=== PATIENT | male | born 1940 | race Caucasian/White ===

== ENCOUNTER 2019-06-08 19:52 | Inpatient (IN) | payer MEDICARE ==
[~2019-06-08] VITALS: Ht 190.5 cm; Wt 86.6 kg
[2019-06-08] MEDS ORDERED: ELAVIL75 MG PO (19:58)
[2019-06-08] MEDS ORDERED: ASPIRIN325 MG PO (19:58)
[2019-06-08] MEDS ORDERED: PLAVIX75 MG PO (19:59)
[2019-06-08] MEDS ORDERED: FENOFIBRATE160 MG PO (19:59)
[2019-06-08] MEDS ORDERED: LISINOPRIL2.5 MG PO (19:59)
[2019-06-08] MEDS ORDERED: HYDROCODON-ACE1 EA10 PO (19:59)
[2019-06-08] MEDS ORDERED: COREG6.25 MG PO (19:59)
[2019-06-08] MEDS ORDERED: PRAVACHOL40 MG PO (20:00)
[2019-06-08] MEDS ORDERED: POTASSIUM CHLOR8 ME1 PO (20:00)
[2019-06-08] MEDS ORDERED: OMEGA-3100 MG PO (20:00)
[2019-06-08 20:23] LABS: BASOPHILS 0.1 % (0-2); EOSINOPHILS 0.4 % (0-7); HEMATOCRIT 40.7 % (42.0-54.0); HEMOGLOBIN 13.6 g/dL (13.5-17.5); IMMATURE GRANULOCYTES 0.5 % (0-5); LYMPHOCYTES 19.1 % (15-50); MCH 30.8 pg (26.0-34.0); MCHC 33.4 g/dL (31.0-37.0); MCV 92.1 fL (80.0-100.0); MEAN PLATELET VOLUME 9.8 fL (7.4-10.4); MONOCYTES 5.8 % (2-11); NEUTROPHILS 74.1 % (40-80); PLATELET COUNT 299 10x3/uL (130-400); RBC 4.42 10x6/uL (4.20-6.10); RDW 14.1 % (11.5-14.5); WBC 9.8 10x3/uL (4.8-10.8)
[2019-06-08 20:32] LABS: INR 1.1 (0.85-1.17); PROTIME 13.7 SECONDS (11.6-15.0)
[2019-06-08 20:36] LABS: CALC OSMOLALITY 280 mosm/kg (275-300); CALCIUM 9.5 mg/dL (8.5-10.1); CARBON DIOXIDE 27.3 mmol/L (21.0-32.0); CHLORIDE - SERUM 104 mmol/L (98-107); CREATININE - SERUM 1.1 mg/dL (0.6-1.3); POTASSIUM - SERUM 3.6 mmol/L (3.5-5.1); SODIUM 142 mmol/L (136-145); UREA NITROGEN 15 mg/dL (7-18); eGFR NON AFRICAN AMERICAN 68 mL/min (90-120)
[2019-06-08 20:38] LABS: GLUCOSE 47 mg/dL (74-106)
--- NOTE | 2019-06-08 20:45 | NUR ---
D10 INFUSION RATE INCREASED TO 100ML/HR
--- NOTE | 2019-06-08 20:46 | NUR ---
FSBS 52
[2019-06-08 20:51] LABS: ALBUMIN 3.6 g/dL (3.4-5.0); ALKALINE PHOSPHATASE 100 U/L (46-116); ALT (SGPT) 19 U/L (10-68); BILIRUBIN - TOTAL 0.24 mg/dL (0.2-1.3); LIPASE 250 U/L (73-393); MAGNESIUM - SERUM 2.4 mg/dL (1.8-2.4); PRO BNP 529 pg/mL (0-450); PROTEIN - SERUM 7.1 g/dL (6.4-8.2); THYROID STIMULATING HORMONE 2.17 uIU/mL (0.36-3.74)
[2019-06-08 20:52] LABS: TROPONIN-I < 0.017 ng/mL (0.000-0.060)
--- NOTE | 2019-06-08 21:21 | NUR ---
PT C/O PAIN TO BACK, EDP NOTIFIED. PT REPORTS PAIN IS CHRONIC.
--- NOTE | 2019-06-08 21:43 | NUR ---
FSBS 49, EDP YOUSIF NOTIFIED. VERBAL ORDER TO INCREASE D10 TO 150ML
[2019-06-08 22:50] VITALS: BP 132/73
[2019-06-08 23:00] VITALS: BP 125/73; BP 132/73; BMI 23.3
--- NOTE | 2019-06-08 23:00 | NUR ---
REC'D PATIENT FROM ER. CONFUSED, TRYING TO GET UP. LEFT AC, CONT TO BEND ARM. FROM ER, D10 AT 150 ML/HR. NEW ORDERS REC'D TO TITRATE D10 DOWN, CHECK ACCUCHECK EVERY HOUR, AND OKAY TO MAKE DNR. PATIENT STATED THAT HE DID NOT WANT ANYTHING DONE IF HIS HEART STOPPED. DENIES ANY SI. ADMISSION ASSESSMENTS COMPLETE. BED ALARM ON. ALSO GIVEN ORANGE JUICE AND CRANBERRY JUICE.
[2019-06-08 23:15] VITALS: BP 116/96
[2019-06-08 23:30] VITALS: BP 98/71
[2019-06-09] VITALS (24 sets, daily range): BP systolic 98–132; BP diastolic 54–80
--- NOTE | 2019-06-09 01:00 | NUR ---
EYES CLOSED, EASILY WAKES. DENIES ANY NEEDS. STOPPED TRYING TO GET UP.
--- NOTE | 2019-06-09 03:00 | NUR ---
RE-ASSESSMENT COMPLETED. DENIES ANY NEEDS. EYES CLOSED, EASILY WAKES. CONT TO MONITOR ACCUCHECKS HOURLY.
--- NOTE | 2019-06-09 05:00 | NUR ---
PATIENT ATTEMPTING TO GET UP, PULLING LINES WHILE TRYING TO GET UP. HELPED URINATE IN URINAL. UA SENT TO LAB VIA CLEAN CATCH. DENIES ANY OTHER NEEDS. BED ALARM ON
[2019-06-09 06:18] LABS: APPEARANCE CLEAR (CLEAR); BILIRUBIN NEGATIVE (NEGATIVE); COLOR YELLOW (YELLOW); GLUCOSE NEGATIVE (NEGATIVE); KETONE NEGATIVE (NEGATIVE); NITRITE NEGATIVE (NEGATIVE); PROTEIN NEGATIVE (NEGATIVE); SPECIFIC GRAVITY 1.015 (1.005-1.020); UROBILINOGEN NORMAL (NORMAL)
--- NOTE | 2019-06-09 07:55 | NUR ---
REPORT RECEIVED FROM KIRTI SALMERON. PT IS RESTING AT THE END OF THE BED. ASKED PT TO SCOOT UP. DID SOME. HAS ARM BOARD TO LEFT ARM TO KEEP IV IN LEFT AC STRAIGHT AND PATENT. D10 AT 50ML/HR. PT IS AN HOURLY BLOOD SUGAR CHECK. PT IS CONFUSED. VSS. WILL CONTINUE TO MONITOR.
--- NOTE | 2019-06-09 08:22 | NUR ---
PT BLOOD SUGAR 50. GOT PT TO EAT MOST OF HIS BREAKFAST INCLUDING ORANGE JUICE. PT VOIDED 325ML. BED ALARM TURNED ON WHEN LEFT THE ROOM. WILL CONTINUE TO MONITOR.
--- NOTE | 2019-06-09 09:08 | NUR ---
BLOOD SUGAR RECHECKED. 86. VSS. WILL CONTINUE TO MONITOR.
--- NOTE | 2019-06-09 11:08 | NUR ---
PT RESTING QUIETLY. VSS. WILL CONTINUE TO MONITOR.
--- NOTE | 2019-06-09 13:04 | NUR ---
PT UP IN ROOM CONFUSED. FOOD TRAY IN FLOOR. ASSISTED PT BACK TO BED. BED ALARM TURNED ON. WILL CONTINUE TO MONITOR.
--- NOTE | 2019-06-09 15:38 | NUR ---
PT TRANSFERRED TO MS. BLOOD SUGAR 94 PRIOR TO PT LEAVING.
--- NOTE | 2019-06-09 17:15 | NUR ---
BLOOD SUGAR 100. PT AWAKE AND EATING DINNER. VSS. WILL CONTINUE TO MONITOR.
--- NOTE | 2019-06-09 19:15 | NUR ---
REPORT RECEIVED. PT RESTING IN BED, DISORIENTED TO PLACE, TIME, AND SITUATION. REORIENTED NEEDED. PT ON ROOM AIR, VITALS STABLE. ASSESSMENT COMPLETED, SEE FLOWSHEET. LT FOREARM PIV INFUSING, SEE IV FLOWSHEET. NO ACUTE DISTRESS NOTED AT THIS TIME.
--- NOTE | 2019-06-09 21:00 | NUR ---
PT ATTEMPTING TO CLIMB OUT OF BED, REORIENTED MULTIPLE TIMES, PT STILL DISORIENTED TO TIME, PLACE, SITUATION. VITALS STABLE, WILL CONTINUE TO MONITOR.
--- NOTE | 2019-06-09 23:00 | NUR ---
PT DISORIENTED TO TIME AND SITUATION, REORIENTED NEEDED. NO ACUTE DISTRESS NOTED.
[2019-06-10] VITALS (15 sets, daily range): BP systolic 93–135; BP diastolic 43–82; Ht 190.5 cm; Wt 86.6 kg
--- NOTE | 2019-06-10 01:00 | NUR ---
PT RESTING IN BED, DISORIENTED TO TIME AND SITUATION. WILL CONTINUE TO MONITOR.
--- NOTE | 2019-06-10 03:00 | NUR ---
PT RESTING IN BED, DISORIENTED TO TIME AND SITUATION. NO ACUTE DISTRESS NOTED.
[2019-06-10 04:01] LABS: BASOPHILS 0.1 % (0-2); EOSINOPHILS 1.9 % (0-7); HEMATOCRIT 37.7 % (42.0-54.0); HEMOGLOBIN 12.4 g/dL (13.5-17.5); IMMATURE GRANULOCYTES 0.4 % (0-5); LYMPHOCYTES 35.6 % (15-50); MCH 30.3 pg (26.0-34.0); MCHC 32.9 g/dL (31.0-37.0); MCV 92.2 fL (80.0-100.0); MEAN PLATELET VOLUME 9.8 fL (7.4-10.4); MONOCYTES 7.7 % (2-11); NEUTROPHILS 54.3 % (40-80); PLATELET COUNT 271 10x3/uL (130-400); RBC 4.09 10x6/uL (4.20-6.10); RDW 14.4 % (11.5-14.5); WBC 8.5 10x3/uL (4.8-10.8)
[2019-06-10 04:34] LABS: CALCIUM 8.7 mg/dL (8.5-10.1); CARBON DIOXIDE 27.8 mmol/L (21.0-32.0); CHLORIDE - SERUM 109 mmol/L (98-107); CREATININE - SERUM 0.9 mg/dL (0.6-1.3); POTASSIUM - SERUM 3.7 mmol/L (3.5-5.1); SODIUM 143 mmol/L (136-145); eGFR NON AFRICAN AMERICAN 86 mL/min (90-120)
[2019-06-10 04:35] LABS: CALC OSMOLALITY 282 mosm/kg (275-300); GLUCOSE 97 mg/dL (74-106); UREA NITROGEN 8 mg/dL (7-18)
--- NOTE | 2019-06-10 05:00 | NUR ---
PT RESTING IN BED, ATTEMPTS TO GET OUT OF BED BY SELF. DISORIENTED TO TIME AND SITUATION. VITALS STABLE, WILL CONTINUE TO MONITOR.
--- NOTE | 2019-06-10 07:00 | NUR ---
PT RESTING IN BED. AROUSES EASILY. SHIFT ASSESSMENT COMPLETED. NO VISIBLE SIGNS OF DISTRESS NOTED AT THIS TIME. BLOOD SUGAR CHECKED AND WITHIN NORMAL LIMITS. WILL CONTINUE TO MONITOR
--- NOTE | 2019-06-10 09:00 | NUR ---
PT UP TO BEDSIDE COMMODE. TOLERATED WELL. NO VISIBLE SIGNS OF DISTRESS NOTED. WILL CONTINUE TO MONITOR
--- NOTE | 2019-06-10 09:26 | NUR ---
OLMAN FROM [facility] CALLED REGARDING PT ADMISSION DATE AND DIAGNOSIS. VERIFIED WITH CHARGE NURSE JAMEY BEFORE GIVING OUT INFORMATION. PROVIDED OLMAN WITH ADMISSION DATE AND DIAGNOSIS.
--- NOTE | 2019-06-10 11:00 | NUR ---
PT RESTING IN BED. TRIED TO URINATE IN A URINAL HOWEVER UNSUCCESSFUL. REASSESSMENT COMPLETED. WILL CONTINUE TO MONITOR
--- NOTE | 2019-06-10 11:50 | NUR ---
DR CORDOVA ON FLOOR ROUNDING ON PATIENTS. IN ROOM UPDATE GIVEN. STATED TO MONITOR BLOOD SUGAR AND IF STABLE POSSIBLE DISCHARGE OR TRANSFER
[2019-06-10 12:07] LABS: UDS - AMPHET NEGATIVE QUAL (NEGATIVE); UDS - BARB NEGATIVE QUAL (NEGATIVE); UDS - BENZO NEGATIVE QUAL (NEGATIVE); UDS - COCAINE NEGATIVE QUAL (NEGATIVE); UDS - OPIATE NEGATIVE QUAL (NEGATIVE); UDS - PCP NEGATIVE QUAL (NEGATIVE); UDS - THC NEGATIVE QUAL (NEGATIVE)
--- NOTE | 2019-06-10 13:00 | NUR ---
PT SITTING UP AT BEDSIDE. NO VISIBLE SIGNS OF DISTRESS NOTED. WILL CONTINUE TO MONITOR
--- NOTE | 2019-06-10 13:49 | CN ---
PATIENT NAME:ABIOLA ESTES MEDICAL RECORD: [id number] : 38 LOCATION:[facility].2308 ADMIT DATE: 06/09/19 ACCOUNT: [id number] CONSULTING PHYSICIAN: NORM CAMPOS MD REFERRING PHYSICIAN: KEV GARCIA MD DATE OF CONSULTATION: 06/09/2019 PSYCHIATRIC CONSULTATION IDENTIFYING DATA: The patient is 78 years old and he is admitted to the hospital on a voluntary basis. CHIEF COMPLAINT: Confusion. HISTORY OF PRESENT ILLNESS: The patient was brought to the Emergency Room secondary to mental status changes. He was found to have a blood sugar of only 40 and was admitted. He has a medical history significant for stroke, hypertension and pacemaker placement. He also is a diabetic and has chronic back pain. He is confused, agitated, and disorganized. He is trying to get out of bed and then forgets why he is trying to get out of bed. He wants to go home, but then tells me he is at home. He is essentially uninterviewable and is experiencing a fair amount of distress with a low degree of specific information about what is distressing to him. Clearly, he is quite confused. ASSESSMENT: 1. Delirium secondary to multiple factors. 2. 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 PLAN: At this time, the patient should be treated supportively, both medically and behaviorally. I am going to give him a scheduled dose of Geodon along with a p.r.n. dose of Geodon and p.r.n. Ativan to assist with his agitation. From home, I noticed that one of his home medicines is 150 mg of Elavil daily that is not appropriate in an elderly person and maybe a contributing factor to his delirium. In addition to that, he is taking a scheduled dose of hydrocodone. He says he has chronic back pain. That is inappropriate in my view as well and would be a contributing factor to his delirium. TRANSINT:[id number] Voice Confirmation ID: [id number] DOCUMENT ID: [id number] NORM CAMPOS MD at 1349 CC: [id number] DICTATION DATE: 06/09/19 1224 LICENSED JOURNEYMAN ELECTRICIAN: 06/09/19 1310 ADM IN [id number] [place] [address]
--- NOTE | 2019-06-10 15:47 | NUR ---
DR CORDOVA PAGED. SHE RETURNED CALL. GIVEN AN UPDATE ON BLOOD SUGAR. DR CORDOVA STATED THAT PT IS GOOD TO BE DISCHARGED. SHE IS GOING TO PUT ORDERS IN.
--- NOTE | 2019-06-10 16:20 | NUR ---
FOLLOW UP APPT CALLED. EDUCATED CRUZTENT ON SMOKIGN CESSATION AND S/S OF HYPOGLYCEMIA.
--- NOTE | 2019-06-10 16:37 | NUR ---
DC'D IV. DISCONNECTED FROM MONITORS. AWAITING RIDE. WHEELCHAIR AT BEDSIDE
--- NOTE | 2019-06-10 17:15 | NUR ---
DISCHARGED PT OUT OF UNIT. TAKEN TO PERSONAL VEHICLE DRIVEN BY ROOMATE. ESCORTED OUT BY WHEELCHAIR.
--- NOTE | 2019-06-11 15:10 | PN ---
PATIENT:ABIOLA ESTES MEDICAL RECORD: [id number] LOCATION:D.ICU D.230 ADMISSION DATE: 06/09/19 PROGRESS NOTE DATE OF SERVICE: 06/10/2019 SUBJECTIVE: The patient's case was discussed with staff. He has no new complaint. OBJECTIVE: The patient is significantly calmer. He still only partially oriented. He has not been aggressive. ASSESSMENT: 1. Delirium. 2. Vascular dementia. PLAN: P.r.n. medications to treat agitation should be maintained. I think the use of the Geodon on a scheduled basis at bedtime should only be for the period of this hospitalization and perhaps the first few days after he returns to the residential. After that I would discontinue it. TRANSINT:[id number] Voice Confirmation ID: [id number] DOCUMENT ID: [id number] NORM CAMPOS MD at 1510 CC: [id number] DICTATION DATE: 06/10/19 1515 ADVERTISING VICE PRESIDENT: 06/10/19 2237 DIS IN 06/10/19 [id number] [place] [address]
== END 2019-06-10 17:46 | disposition home or self-care (01) | DRG 71 ==
LOC: EDBD 19:52 → D.ER 19:52 → D.M2 20:16 → OBSVTIME 20:16 → D.ICU 22:01
PROVIDERS: Family Medicine; ADMIT Internal Medicine Nephrology; ATTEND Internal Medicine Nephrology
DX: G93.41 Metabolic encephalopathy (principal); F17.203 Nicotine dependence unspecified, with withdrawal; E11.649 Type 2 diabetes mellitus with hypoglycemia without coma; I10 Essential (primary) hypertension; E78.5 Hyperlipidemia, unspecified; F32.9 Major depressive disorder, single episode, unspecified; G89.29 Other chronic pain; R41.0 Disorientation, unspecified

== ENCOUNTER 2019-06-29 10:20 | Inpatient (IN) | payer MEDICARE ==
[~2019-06-29] VITALS: Ht 182.9 cm; Wt 84.5 kg
[~2019-06-29 10:20] MED LIST: ASPIRIN325 MG PO; COREG6.25 MG PO; ELAVIL75 MG PO; FENOFIBRATE160 MG PO; HYDROCODON-ACE1 EA10 PO; LISINOPRIL2.5 MG PO; OMEGA-3100 MG PO; PLAVIX75 MG PO; POTASSIUM CHLOR8 ME1 PO; PRAVACHOL40 MG PO
[2019-06-29 10:40] LABS: BASOPHILS 0.2 % (0-2); HEMOGLOBIN 14.1 g/dL (13.5-17.5); IMMATURE GRANULOCYTES 0.2 % (0-5); LYMPHOCYTES 32.3 % (15-50); MCH 30.7 pg (26.0-34.0); MCHC 33.6 g/dL (31.0-37.0); MCV 91.5 fL (80.0-100.0); MEAN PLATELET VOLUME 9.9 fL (7.4-10.4); MONOCYTES 6.6 % (2-11); NEUTROPHILS 57.7 % (40-80); PLATELET COUNT 275 10x3/uL (130-400); RBC 4.59 10x6/uL (4.20-6.10); RDW 14.2 % (11.5-14.5); WBC 8.1 10x3/uL (4.8-10.8)
[2019-06-29 10:48] LABS: INR 0.96 (0.85-1.17); PROTIME 12.7 SECONDS (11.6-15.0)
[2019-06-29 10:49] LABS: APTT 34.3 SECONDS (22.8-39.4)
[2019-06-29 10:54] LABS: CALC OSMOLALITY 283 mosm/kg (275-300); CALCIUM 8.8 mg/dL (8.5-10.1); CHLORIDE - SERUM 107 mmol/L (98-107); GLUCOSE 92 mg/dL (74-106); POTASSIUM - SERUM 3.8 mmol/L (3.5-5.1); SODIUM 143 mmol/L (136-145); UREA NITROGEN 11 mg/dL (7-18); eGFR NON AFRICAN AMERICAN 76 mL/min (90-120)
[2019-06-29 11:10] LABS: ALBUMIN 3.4 g/dL (3.4-5.0); ALKALINE PHOSPHATASE 98 U/L (46-116); ALT (SGPT) 18 U/L (10-68); BILIRUBIN - TOTAL 0.34 mg/dL (0.2-1.3); CKMB 1.7 U/L (0.0-3.6); CREATINE KINASE 66 UL (21-232); MAGNESIUM - SERUM 2.2 mg/dL (1.8-2.4); PROTEIN - SERUM 7.3 g/dL (6.4-8.2); THYROID STIMULATING HORMONE 2.88 uIU/mL (0.36-3.74)
[2019-06-29 11:14] LABS: TROPONIN-I < 0.017 ng/mL (0.000-0.060)
[2019-06-29 13:14] LABS: APPEARANCE CLEAR (CLEAR); BILIRUBIN NEGATIVE (NEGATIVE); COLOR STRAW (YELLOW); GLUCOSE NEGATIVE (NEGATIVE); KETONE NEGATIVE (NEGATIVE); NITRITE NEGATIVE (NEGATIVE); PROTEIN NEGATIVE (NEGATIVE); SPECIFIC GRAVITY 1.005 (1.005-1.020); UROBILINOGEN NORMAL (NORMAL)
[2019-06-29 13:28] LABS: UDS - AMPHET NEGATIVE QUAL (NEGATIVE); UDS - BARB NEGATIVE QUAL (NEGATIVE); UDS - BENZO NEGATIVE QUAL (NEGATIVE); UDS - COCAINE NEGATIVE QUAL (NEGATIVE); UDS - OPIATE NEGATIVE QUAL (NEGATIVE); UDS - PCP NEGATIVE QUAL (NEGATIVE); UDS - THC NEGATIVE QUAL (NEGATIVE)
[2019-06-29 13:49] VITALS: BP 139/78
--- NOTE | 2019-06-29 16:19 | NUR ---
ARRIVES TO UNIT PER STRETCHER, ALERT, TANGIRNAQ, SL TO LAC, WILL CHECK ORDERS AND CONT TO MONITOR FOR SYMPTOMS OF CVA
[2019-06-29 16:21] VITALS: BP 139/76
--- NOTE | 2019-06-29 17:07 | NUR ---
UNABLE TO REACH VALERIA OR SON RYNE TO ASK QUESTIONS ABOUT PT HX AND HOME MEDS
--- NOTE | 2019-06-29 19:00 | NUR ---
BEDSIDE REPORT RECEIVED AND CARE OF PT ASSUMED. PT LYING IN HIGH SIMPSON'S POSITION WITH EYES CLOSED. IV TO LEFT AC SALINE LOCKED. BED ALARM I PLACE.
[2019-06-29] MEDS ORDERED: FUROSEMIDE40 MG PO (19:16)
--- NOTE | 2019-06-29 19:39 | NUR ---
pt looking for hearing aids and shoes and glasses, glasses on pt face, unable to reach family to ask about hearing aids, none in ears upon arrival to unit
[2019-06-29 20:00] VITALS: BP 167/89
--- NOTE | 2019-06-29 20:47 | NUR ---
HS MEDICATIONS GIVEN. FSBS 92 THIS CHECK REQUIRING NO COVERAGE PER SLIDING SCALE.
[2019-06-30] VITALS: BP 143/78
[2019-06-30 04:00] VITALS: BP 153/89
--- NOTE | 2019-06-30 04:05 | NUR ---
PT WAKING UP AND MORE ALERT. ASKING WHERE HIS HEARING AIDS ARE....HE DID NOT HAVE HEARING AIDS WHEN HE ARRIVED ON THIS FLOOR ACCORDING TO THE DAY SHIFT NURSE, KIRTI SCHUMACHER. CALLED ER AND TALKED TO MIRTHA AND ADMISSIONS....THEY ARE GOING TO SEARCH DOWN THERE AND CHECK IN RADIOLOGY, PT HAD A CT SCAN AND WOULD NOT HAVE BEEN ABLE TO KEEP HEARING AIDS IN FOR THAT PROCEDURE.
[2019-06-30 06:49] LABS: BASOPHILS 0.4 % (0-2); EOSINOPHILS 3.7 % (0-7); HEMATOCRIT 43.3 % (42.0-54.0); IMMATURE GRANULOCYTES 0.3 % (0-5); LYMPHOCYTES 37.7 % (15-50); MCH 30.3 pg (26.0-34.0); MCHC 32.3 g/dL (31.0-37.0); MONOCYTES 5.8 % (2-11); NEUTROPHILS 52.1 % (40-80); PLATELET COUNT 233 10x3/uL (130-400); RBC 4.62 10x6/uL (4.20-6.10); RDW 14.2 % (11.5-14.5); WBC 7.9 10x3/uL (4.8-10.8)
[2019-06-30 06:50] LABS: MCV 93.7 fL (80.0-100.0)
[2019-06-30 07:08] LABS: ALBUMIN 3.4 g/dL (3.4-5.0); ALKALINE PHOSPHATASE 100 U/L (46-116); ALT (SGPT) 16 U/L (10-68); BILIRUBIN - TOTAL 0.43 mg/dL (0.2-1.3); CALC OSMOLALITY 279 mosm/kg (275-300); CALCIUM 8.8 mg/dL (8.5-10.1); CARBON DIOXIDE 26.8 mmol/L (21.0-32.0); CHLORIDE - SERUM 106 mmol/L (98-107); CREATININE - SERUM 0.9 mg/dL (0.6-1.3); GLUCOSE 83 mg/dL (74-106); POTASSIUM - SERUM 3.6 mmol/L (3.5-5.1); PROTEIN - SERUM 7.2 g/dL (6.4-8.2); SODIUM 142 mmol/L (136-145); eGFR NON AFRICAN AMERICAN 86 mL/min (90-120)
[2019-06-30 07:09] LABS: UREA NITROGEN 8 mg/dL (7-18)
[2019-06-30 07:45] LABS: INR 1.01 (0.85-1.17); PROTIME 13.3 SECONDS (11.6-15.0)
--- NOTE | 2019-06-30 08:45 | NUR ---
RESTING IN BED, EYES CLOSED, NO DISTRESS NOTED, SL IN PLACE, CONT TO MONITOR SUGARS
[2019-06-30 08:53] VITALS: BP 143/90
[2019-06-30 09:07] LABS: CHOL - HDL RATIO 5.3 ratio (2.3-4.9); LDL-HDL RATIO 2.9 ratio (1.5-3.5)
--- NOTE | 2019-06-30 12:26 | NUR ---
PT OVERPOWERED NURSE AND WALKED OUT OF ROOM WITH OVERBED TABLE, CONFUSED, THINKS HE IS HOME AND I AM NOT TELLING HIM THE TRUTH, RETURNED SAFELY TO BED
[2019-06-30 12:56] VITALS: BP 146/82
[2019-06-30 17:02] VITALS: BP 156/87
--- NOTE | 2019-06-30 19:00 | NUR ---
BEDSIDE REPORT RECEIVED AND CARE OF PT ASSUMED. PT SITTING UP ON SIDE OF BED...CONFUSED AND DISORIENTED. DAY SHIFT REPORTS HE HAS BEED HARD TO KEEP IN HIS ROOM AND HE IS VERY UNSTABLE ON HIS FEET. IV TO LEFT AC SALINE LOCKED. BED ALARM IN PLACE FOR SAFETY.
--- NOTE | 2019-06-30 19:26 | NUR ---
Dana SHAW HERE TO VISIT WITH PT, STATES THAT HE DIDNT BRING HIS HEARING AIDS OR SHOES TO THE HOSPITAL THIS VISIT
--- NOTE | 2019-06-30 19:40 | NUR ---
ABBE AYON, CEFERINO TO REQUEST MED TO CALM PT DOWN. PT WILL NOT STAY IN BED AND KEEPS TRYING TO LEAVE ROOM PUSHING HIS BEDSIDE TABLE FOR SUPPORT...VERY UNSTABLE ON HIS FEET. BECOMING COMBATIVE WHEN TRYING TO RE-ORIENT HIM TO SITUATION...HE THINKS HE IS HOME AND WE ARE INTRUDERS. RECEIVED ORDER FOR GEODON 20 MG BID PRN AND INSTRUCTED TO GIVE FIRST DOSE AT BEDTIME MED PASS.
--- NOTE | 2019-06-30 21:40 | NUR ---
HS MEDICATIONS GIVEN TO INCLUDE GEODON 20 MG PO. FSBS 84 THIS CHECK REQUIRING NO COVERAGE PER SLIDING SCALE. GAVE PT JUICE FOR HS SNACK.
--- NOTE | 2019-06-30 22:11 | NUR ---
PT REFUSES TO KEEP TELEMETRY ON...RETURNED TO INSPECTOR HOT FORGINGS.
--- NOTE | 2019-06-30 22:30 | NUR ---
ASSISTED PT UP TO VOID USING WALKER. NOT CONFUSED BEFORE PRN MED. CHANGED ALL BEDDING. POSITIONED IN BED FOR COMFORT AND COVERED WITH WARM BLANKET. WILL MONITOR CLOSELY. BED ALARM IN USE.
[2019-07-01 04:00] VITALS: BP 122/62
--- NOTE | 2019-07-01 04:30 | NUR ---
PT WEAKER AND VERY GROGGY....TRYING TO STAND TO GO TO VOID. CHECKED FSBS - 59 AT THIS TIME. GAVE 25 ML D50 PER HYPO GLYCEMIC PROTOCAL. WILL RE-CHECK FSBS.
[2019-07-01 07:58] VITALS: BP 136/71
[2019-07-01 10:28] LABS: BASOPHILS 0.3 % (0-2); EOSINOPHILS 2.2 % (0-7); HEMATOCRIT 41.1 % (42.0-54.0); HEMOGLOBIN 13.6 g/dL (13.5-17.5); IMMATURE GRANULOCYTES 0.2 % (0-5); LYMPHOCYTES 31.3 % (15-50); MCH 30.5 pg (26.0-34.0); MCHC 33.1 g/dL (31.0-37.0); MCV 92.2 fL (80.0-100.0); MONOCYTES 8.7 % (2-11); NEUTROPHILS 57.3 % (40-80); PLATELET COUNT 219 10x3/uL (130-400); RBC 4.46 10x6/uL (4.20-6.10); RDW 13.8 % (11.5-14.5)
[2019-07-01 10:30] LABS: WBC 5.8 10x3/uL (4.8-10.8)
[2019-07-01 10:39] LABS: ALBUMIN 3.2 g/dL (3.4-5.0); ALKALINE PHOSPHATASE 93 U/L (46-116); ALT (SGPT) 16 U/L (10-68); BILIRUBIN - TOTAL 0.47 mg/dL (0.2-1.3); CALC OSMOLALITY 282 mosm/kg (275-300); CALCIUM 8.4 mg/dL (8.5-10.1); CARBON DIOXIDE 28.4 mmol/L (21.0-32.0); CHLORIDE - SERUM 108 mmol/L (98-107); CREATININE - SERUM 0.8 mg/dL (0.6-1.3); GLUCOSE 88 mg/dL (74-106); POTASSIUM - SERUM 3.4 mmol/L (3.5-5.1); PROTEIN - SERUM 6.8 g/dL (6.4-8.2); SODIUM 143 mmol/L (136-145); UREA NITROGEN 9 mg/dL (7-18); eGFR NON AFRICAN AMERICAN > 90 mL/min (90-120)
[2019-07-01 11:39] VITALS: BP 137/71
--- NOTE | 2019-07-01 12:47 | NUR ---
OT NOTE: UNABLE TO AROUSE.. WILL ATTEMPT AGAIN LATER. FIOR HANSEN, OTR/L
[2019-07-01 13:37] VITALS: Ht 182.9 cm; Wt 84.5 kg
--- NOTE | 2019-07-01 15:07 | NUR ---
PT LYING IN BED MUMBLING. CONFUSED, PT NOT STURDY UNABLE TO GET UP WITHOUT ASSISTANCE AND UNABLE TO ASSIST US IN GETTING PT UP. PT WAS ABLE TO TAKE MEDS THIS MORNING BUT NOW UNABLE TO SWALLOW OR EAT WITHOUT CHOKING, REPLACED PT K+ WITH RIDERS. CONTINUE WITH PLAN OF CARE
--- NOTE | 2019-07-01 18:23 | NUR ---
ASSISTED PARTS ROOM ASSOCIATE WITH FULL LINEN CHANGE AND BED BATH, PT IV RESITED TO LEFT WRIST, PT IS STILL SNORING, NOT AWAKE FOR MEALS REALLY HAD TO SIT PT UP AND WAKE HIM TO EAT. PT DID NOT DO WELL WITH ST SO FOOD IS NOW PUREED. CL IN REACH CONTINUE WITH PLAN OF CARE
--- NOTE | 2019-07-01 19:00 | NUR ---
BEDSIDE REPORT RECEIVED AND CARE OF PT ASSUMED. PT LYING IN MID SIMPSON'S POSITION WITH EYES CLOSED AND UNLABORED BREATHING. IV TO LEFT WRIST PATENT WITH D5 1/2 NS INFUISNG AT 50 ML/HR. PT FAILED SWALLOW EVAL TODAY AND IS NOW ON THICKENED LIQUIDS AND PUREED DIET. WILL MONITOR CLOSELY FOR NEEDS.
--- NOTE | 2019-07-01 20:26 | NUR ---
HS MEDICATIONS GIVEN WITH SIPS OF THICKENED WATER. WILL CONTINUE TO MONITOR FOR NEEDS.
[2019-07-01 21:11] VITALS: BP 130/77
[2019-07-02] VITALS (9 sets, daily range): BP systolic 91–138; BP diastolic 66–88
--- NOTE | 2019-07-02 02:26 | NUR ---
PT SLEEPING IN MID SIMPSON'S POSITION....HAS BEED LETHARGIC ALL SHIFT. VITALS STABLE AND UNLABORED BREATHING. BED ALARM IN USE FOR SAFETY.
[2019-07-02 05:57] LABS: BASOPHILS 0.3 % (0-2); EOSINOPHILS 2.7 % (0-7); HEMATOCRIT 42.1 % (42.0-54.0); IMMATURE GRANULOCYTES 0.1 % (0-5); LYMPHOCYTES 25.2 % (15-50); MCH 30.6 pg (26.0-34.0); MCHC 33.3 g/dL (31.0-37.0); MCV 91.9 fL (80.0-100.0); MEAN PLATELET VOLUME 10.5 fL (7.4-10.4); MONOCYTES 9.7 % (2-11); PLATELET COUNT 245 10x3/uL (130-400); RBC 4.58 10x6/uL (4.20-6.10); RDW 14.1 % (11.5-14.5)
[2019-07-02 06:06] LABS: WBC 7.9 10x3/uL (4.8-10.8)
[2019-07-02 06:12] LABS: ALBUMIN 3.2 g/dL (3.4-5.0); ALKALINE PHOSPHATASE 93 U/L (46-116); ALT (SGPT) 16 U/L (10-68); BILIRUBIN - TOTAL 0.56 mg/dL (0.2-1.3); CALC OSMOLALITY 280 mosm/kg (275-300); CALCIUM 8.4 mg/dL (8.5-10.1); CARBON DIOXIDE 29.6 mmol/L (21.0-32.0); CHLORIDE - SERUM 106 mmol/L (98-107); CREATININE - SERUM 0.9 mg/dL (0.6-1.3); GLUCOSE 83 mg/dL (74-106); POTASSIUM - SERUM 3.9 mmol/L (3.5-5.1); PROTEIN - SERUM 6.4 g/dL (6.4-8.2); SODIUM 142 mmol/L (136-145); UREA NITROGEN 9 mg/dL (7-18); eGFR NON AFRICAN AMERICAN 86 mL/min (90-120)
--- NOTE | 2019-07-02 08:24 | NUR ---
ASSISTED PATIENT WITH USE OF URINAL. FALL PRECAUTIONS IN PLACE. CL IN REACH. WCTM
--- NOTE | 2019-07-02 11:04 | NUR ---
PATIENT SITTING IN CHAIR. CHAIR ALARM ON. RIGHT EAR HAS A HEARING AID IN. THE OTHER IS CHARGING. CL IN REACH. [facility]
--- NOTE | 2019-07-02 15:53 | NUR ---
1545 REPORT RECIEVED AND CARE ASSUMED OF PT FROM FLOOR.. PT ARRIVED IN CHAIR HE IS CONVERSANT AND IS NOT COMBATIVE AT THIS TIME.. PT LEFT IN CHAIR AT BEDSIDE AND COVERED WITH A WARM BLANKET TV ON .. IV SITE SALINE LOCKED AT THIS TIME.. PT IS NOT WILLING AT THIS TIME TO ALLOW US TO PUT HEART MONITOR OR BP CUFF ON HIM.. DR LONDON IS IN THE UNIT AND ORDERS ARE RECIEVED..
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
--- NOTE | 2019-07-02 18:36 | NUR ---
1800 PT REMAINS COMBATIVE NOT ALLOWING HEART MONITIRING OR BP MONITORING..
--- NOTE | 2019-07-02 19:00 | NUR ---
BEDSIDE REPORT AND SHIFT ASSESSMENT COMPLETED, PT CARE ASSUMED. MONITORS ON AND WORKING, SEE FLOW SHEET FOR FURTHER DETAILS. WILL CONTINUE TO OBSERVE.
--- NOTE | 2019-07-02 21:00 | NUR ---
PT LYING IN BED RESTING, PT CONTINUES TO BE CONFUSED AND COMBATIVE. MONITORS ON AND WORKING, VITALS STABLE. WILL CONTINUE TO OBSERVE.
--- NOTE | 2019-07-02 23:00 | NUR ---
PT TURNED AND REPOSITIONED FOR COMFORT. PT CLEANED FROM BLADDER INCONT, COMPLETE LINEN CHANGE COMPLETED AT THIS TIME, SEE FLOW SHEET FOR FURTHER DETAILS. WILL CONTINUE TO OBSERVE.
[2019-07-03] VITALS (12 sets, daily range): BP systolic 100–156; BP diastolic 57–98
--- NOTE | 2019-07-03 01:00 | NUR ---
PT TURNED AND REPOSITIONED FOR COMFORT, MONITORS ON AND WORKING, VITALS STABLE, PT RESTING. WILL CONTINUE TO OBSERVE.
--- NOTE | 2019-07-03 03:00 | NUR ---
NO CHANGES, SEE FLOW SHEET FOR FURTHER DETAILS. WILL CONTINUE TO OBSERVE.
[2019-07-03 04:22] LABS: BASOPHILS 0.1 % (0-2); EOSINOPHILS 2.8 % (0-7); HEMATOCRIT 43.1 % (42.0-54.0); HEMOGLOBIN 14.4 g/dL (13.5-17.5); IMMATURE GRANULOCYTES 0.1 % (0-5); LYMPHOCYTES 33.6 % (15-50); MCH 30.8 pg (26.0-34.0); MCHC 33.4 g/dL (31.0-37.0); MCV 92.3 fL (80.0-100.0); MEAN PLATELET VOLUME 10.2 fL (7.4-10.4); NEUTROPHILS 54.4 % (40-80); PLATELET COUNT 240 10x3/uL (130-400); RBC 4.67 10x6/uL (4.20-6.10); RDW 13.9 % (11.5-14.5); WBC 7.5 10x3/uL (4.8-10.8)
[2019-07-03 04:29] LABS: ALBUMIN 3.3 g/dL (3.4-5.0); ALKALINE PHOSPHATASE 95 U/L (46-116); ALT (SGPT) 16 U/L (10-68); BILIRUBIN - TOTAL 0.52 mg/dL (0.2-1.3); CALCIUM 8.7 mg/dL (8.5-10.1); CARBON DIOXIDE 30.3 mmol/L (21.0-32.0); CHLORIDE - SERUM 105 mmol/L (98-107); SODIUM 143 mmol/L (136-145); UREA NITROGEN 11 mg/dL (7-18); eGFR NON AFRICAN AMERICAN 76 mL/min (90-120)
[2019-07-03 04:30] LABS: CALC OSMOLALITY 281 mosm/kg (275-300); GLUCOSE 60 mg/dL (74-106); POTASSIUM - SERUM 3.3 mmol/L (3.5-5.1)
--- NOTE | 2019-07-03 05:00 | NUR ---
PT LYING IN BED RESTING, MONITORS ON AND WORKING, VITALS STABLE, WILL CONTINUE TO OBSERVE.
--- NOTE | 2019-07-03 08:30 | NUR ---
PT AWAKE. COOPERATIVE. MORNING MEDICATIONS HAVE BEEN PROVIDED. GIVEN 1-2 AT A TIME WITH APPLESAUCE. ABLE TO TOLERATE WITH NO S/S OF ASPIRATION. HAS EATEN A FEW BITES OF EGGS, CREAM OF WHEAT CEREAL. ALMOST COMPLETE BOWL OF APPLE SAUCE EATEN, AND 200ML OF THICKEN WATER CONSUMED.
--- NOTE | 2019-07-03 09:26 | NUR ---
PT SLEEPING AT THIS TIME. NO DISTRESS NOTED. BED LOW. SIDE RAILS X3. CALL LIGHT IN REACH.
--- NOTE | 2019-07-03 10:34 | NUR ---
FRIEND VALERIA CALLED TO CHECK ON PATIENT. PASSWORD WAS GIVEN. PT RESTING AT THIS TIME. SAYS PT HAS A SON HERE IN [place], BUT THEY DO NOT MAINTAIN CONTACT. SON IN [facility] MAKES DECISIONS. RYNE [phone]
--- NOTE | 2019-07-03 11:55 | NUR ---
PT YELLING OUT TO GET OUT OF BED AND TO "NOT BE TIED DOWN" ATTEMPTING TO PULL AT RESTRAINTS. REMOVES COVERS, PULLED BEDPAN FROM UNDER BUTTOCKS AND THREW IN FLOOR. YELLS FOR NURSE TO "TAKE THE NEEDLE OUT OF MY ARM SO I CAN GET UP AND TAKE A SHIT" SAYS "I HAD A STROKE THREE DAYS AGO AND YOU'RE GOING TO MAKE ME HAVE ANOTHER ONE, I'VE GOT SOMETHING IN MY BRAIN THAT CAN EXPLODE ANY MINUTE, AND YOU BETTER LET ME OUT OF HERE"
--- NOTE | 2019-07-03 12:34 | NUR ---
DR CAMPOS BY TO SEE PATIENT. SAYS HE WILL TAKE IN ASSISTED IF PHYSICIAN FEELS MEDICALLY STABLE AND IS AGREEABLE (ALONG WITH FAMILY).
--- NOTE | 2019-07-03 13:27 | NUR ---
Nutrition follow-up: Diet: consistent CHO puree with honey thick liquids 2/2 decrease LOC PO intake today; bowl of cream of wheat, 1 applesauce, a few bites of eggs and 200 ml thicken water per nurse. Wt: 186# Pt will go to [facility] when stable. RDN following.
[2019-07-03] MEDS ORDERED: GEODON20 M1 IM (14:22)
[2019-07-03] MEDS ORDERED: NICODERM C1 PATCH .1 TRANSDERM (14:22)
[2019-07-03] MEDS ORDERED: GEODON20 MG PO (14:22)
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
--- NOTE | 2019-07-03 15:39 | NUR ---
REPORT CALLED TO [facility] IN [facility]. TO TAKE OUT PIV BEFORE TRANSPORT.
--- NOTE | 2019-07-03 16:00 | NUR ---
PIV TO LEFT ARM REMOVED, TIP INTACT. NO BLEEDING.
--- NOTE | 2019-07-03 16:41 | MORECARE ---
CASE MANAGEMENT DISCHARGE SUMMARY PATIENT: ABIOLA ESTES UNIT: [id number] ADM DATE: 06/29/19 AGE: 78 : 39 SEX: M ROOM/BED: D.2312 AUTHOR: FRED PIKE PHYSICIAN: REFERRING PHYSICIAN: KEV GARCIA MD DATE OF SERVICE: 07/03/19 Discharge Plan Patient Name: ABIOLA ESTES Facility: [facility]:[place] : 1940 Planned Disposition: Home Anticipated Discharge Date: Discharge Date: Expected LOS: Initial Reviewer: [email or web address] Initial Review Date: 07/03/2019 Generated: 07/03/19 5:40 pm Patient Name: ABIOLA ESTES Page [id number] at 1641 All edits/amendments must be made on the electronic document DICTATION DATE: 07/03/19 [facility] PIE CHEF: MARVIN 07/03/19 [facility] RPT#: [id number] IN DATE: STATUS: ADM IN [facility] [address] [place] [address] END OF REPORT
--- NOTE | 2019-07-03 16:51 | MORECARE ---
CASE MANAGEMENT DISCHARGE SUMMARY PATIENT: ABIOLA ESTES UNIT: [id number] ADM DATE: 06/29/19 AGE: 78 : 39 SEX: M ROOM/BED: D.2312 AUTHOR: FRED PIKE PHYSICIAN: REFERRING PHYSICIAN: KEV GARCIA MD DATE OF SERVICE: 07/03/19 Discharge Plan Patient Name: ABIOLA ESTES [facility] [facility] 1940 Planned Disposition: Home Anticipated Discharge Date: Discharge Date: Expected LOS: Initial Reviewer: [email or web address] Initial Review Date: 07/03/2019 Generated: 07/03/19 5:51 pm DCPIA - Discharge Planning Initial Assessment Updated by [email or web address]: Kym Gutierrez on 07/03/19 4:42 pm * Is the patient Alert and Oriented? Yes * How many steps to enter\exit or inside your home? * PCP [facility] * [facility] * Preadmission Environment Home with Family * ADLs Independent * Equipment Walker * Other Equipment B/P, GLUCOMETER * List name and contact numbers for known caregivers / representatives who currently or will assist patient after discharge: VALERIA FRENCH - CAREGIVER - [phone] RYNE ESTES SON -[facility]) - [phone] * Verbal permission to speak to the caregivers and representatives has been obtained from the patient. Yes * Community resources currently utilized Home Health * Please name any agencies selected above. [facility] * Additional services required to return to the preadmission environment? No * Can the patient safely return to the preadmission environment? Yes * Has this patient been hospitalized within the prior 30 days at any hospital? Yes Last DP export: 07/03/19 3:41 p Patient Name: ABIOLA ESTES Page [id number] at 1651 All edits/amendments must be made on the electronic document DICTATION DATE: 07/03/191650 FIG WASHER: MARVIN 07/03/191650 RPT#: [id number] DC DATE: STATUS: ADM IN [facility] [address] [place] [address] END OF REPORT
--- NOTE | 2019-07-03 16:59 | MORECARE ---
CASE MANAGEMENT DISCHARGE SUMMARY PATIENT: ABIOLA ESTES UNIT: [id number] ADM DATE: 06/29/19 AGE: 78 : 39 SEX: M ROOM/BED: D.2312 AUTHOR: SHAHZAD,DOC PHYSICIAN: REFERRING PHYSICIAN: KEV GARCIA MD DATE OF SERVICE: 07/03/19 Discharge Plan Patient Name: ABIOLA ESTES Facility: [facility]:[place] : 1940 Planned Disposition: Home Anticipated Discharge Date: Discharge Date: Expected LOS: Initial Reviewer: [email or web address] Initial Review Date: 07/03/2019 Generated: 07/03/19 5:59 pm Comments DCP- Discharge Planning Updated by [email or web address]: Kym Gutierrez on 07/03/19 3:[address] Patient Name: ABIOLA ESTES Admission Status: ER Accout number: [id number] Admission Date: 06-29-2019 : 1940 Admission Diagnosis: Attending: KEV GARCIA Current LOS: 4 Anticipated DC Date: Planned Disposition: Home Primary Insurance: [employer] CHOICE PPO MCR ADVANT Discharge Planning Comments: CM called and spoke with patient's caregiver/ roommate Basilia French [phone] after explaining CM role and obtaining verbal consent. Patient lives at home with Basilia where he is independent with his care and plans to return there upon discharge. Basilia states that he has good and bad days regarding his confusion. Basilia states that patient is being seen by [facility] for PT & OT. CM discussed availability / needs of home health and medical equipment. Patient denies any discharge needs at this time. CM discussed with Basilia that psychiatric MD is recommended [facility] placement. Basilia agreed that would be helpful and that the patient had stated that he needed help. Basilia will have patient's son call CM since he is POA. Basilia will drive patient home upon discharge. CM will continue to follow and assist as needed with discharge planning / needs. Ryne Estes son called CM and agreed that it was alright for patient to go to [facility]. CM discussed with son code status. Ryne stated that he wanted patient to be a DNR. CM confirmed verbally that Ryne was patient's POA. CM had Mary Montiel RN to witness the request for DNR. Ryne denied having any other questions regarding patient. Hostess Cashier: Kym Gutierrez DCPIA - Discharge Planning Initial Assessment Updated by [id number]: Kym Gutierrez on 07/03/19 4:42 pm * Is the patient Alert and Oriented? Yes * How many steps to enter\exit or inside your home? * PCP [facility] * [facility] * Preadmission Environment Home with Family * ADLs Independent * Equipment Walker * Other Equipment B/P, GLUCOMETER * List name and contact numbers for known caregivers / representatives who currently or will assist patient after discharge: BASILIA FRENCH - CAREGIVER - [phone] RYNE ESTES - SON -(poa) - [phone] * Verbal permission to speak to the caregivers and representatives has been obtained from the patient. Yes * Community resources currently utilized Home Health * Please name any agencies selected above. [facility] * Additional services required to return to the preadmission environment? No * Can the patient safely return to the preadmission environment? Yes * Has this patient been hospitalized within the prior 30 days at any hospital? Yes Last DP export: 07/03/19 3:51 p Patient Name: ABIOLA ESTES Page [id number] at 1659 All edits/amendments must be made on the electronic document DICTATION DATE: 07/03/191658 SALVAGE INSPECTOR WOOD PARTS: MARVIN 07/03/191658 RPT#: [id number] DC DATE: STATUS: ADM IN [facility] [address] [place] [address] END OF REPORT
--- NOTE | 2019-07-03 17:25 | MORECARE ---
CASE MANAGEMENT DISCHARGE SUMMARY PATIENT: ABIOLA ESTES UNIT: [id number] ADM DATE: 06/29/19 AGE: 78 : 39 SEX: M ROOM/BED: D.2312 AUTHOR: SHAHZAD,DOC PHYSICIAN: REFERRING PHYSICIAN: KEV GARCIA MD DATE OF SERVICE: 07/03/19 Discharge Plan Patient Name: ABIOLA ESTES Facility: [facility]:[place] : 1940 Planned Disposition: Home Anticipated Discharge Date: Discharge Date: 07/03/2019 Expected LOS: Initial Reviewer: [email or web address] Initial Review Date: 07/03/2019 Generated: 07/03/19 6:24 pm Comments DCP- Discharge Planning Updated by [email or web address]: Kym Gutierrez on 07/03/19 3:[address] Patient Name: ABIOLA ESTES Admission Status: ER Accout number: [id number] Admission Date: 06-29-2019 : 1940 Admission Diagnosis: Attending: KEV GARCIA Current LOS: 4 Anticipated DC Date: Planned Disposition: Home Primary Insurance: [employer] CHOICE PPO MCR ADVANT Discharge Planning Comments: CM called and spoke with patient's caregiver/ roommate Basilia French [phone] after explaining CM role and obtaining verbal consent. Patient lives at home with Basilia where he is independent with his care and plans to return there upon discharge. Basilia states that he has good and bad days regarding his confusion. Basilia states that patient is being seen by [facility] for PT & OT. CM discussed availability / needs of home health and medical equipment. Patient denies any discharge needs at this time. CM discussed with Basilia that psychiatric MD is recommended [facility] placement. Basilia agreed that would be helpful and that the patient had stated that he needed help. Basilia will have patient's son call CM since he is POA. Basilia will drive patient home upon discharge. CM will continue to follow and assist as needed with discharge planning / needs. Ryne Estes son called CM and agreed that it was alright for patient to go to [facility]. CM discussed with son code status. Ryne stated that he wanted patient to be a DNR. CM confirmed verbally that Ryne was patient's POA. CM had Mary Montiel RN to witness the request for DNR. Ryne denied having any other questions regarding patient. Prospecting Observer: Kym Gutierrez DCPIA - Discharge Planning Initial Assessment Updated by [id number]: Kym Gutierrez on 07/03/19 4:42 pm * Is the patient Alert and Oriented? Yes * How many steps to enter\exit or inside your home? * PCP [facility] * [facility] * Preadmission Environment Home with Family * ADLs Independent * Equipment Walker * Other Equipment B/P, GLUCOMETER * List name and contact numbers for known caregivers / representatives who currently or will assist patient after discharge: BASILIA FRENCH - CAREGIVER - [phone] RYNE ESTES - SON -(poa) - [phone] * Verbal permission to speak to the caregivers and representatives has been obtained from the patient. Yes * Community resources currently utilized Home Health * Please name any agencies selected above. [facility] * Additional services required to return to the preadmission environment? No * Can the patient safely return to the preadmission environment? Yes * Has this patient been hospitalized within the prior 30 days at any hospital? Yes Last DP export: 07/03/19 3:59 p Patient Name: ABIOLA ESTES Page 46320 at 1725 All edits/amendments must be made on the electronic document DICTATION DATE: 07/03/191723 FORESTRY FARM LABORER: MARVIN 07/03/191723 RPT#: [id number] DC DATE:07/03/19 STATUS: DIS IN [facility] [address] [place] [address] END OF REPORT
== END 2019-07-03 17:03 | disposition short-term general hospital (02) | DRG 64 ==
LOC: D.ER 10:20 → D.MS 14:34 → D.ICU 14:34
PROVIDERS: Family Medicine; ADMIT Internal Medicine Nephrology; ATTEND Internal Medicine Nephrology
DX: I63.9 Cerebral infarction, unspecified (principal); G93.41 Metabolic encephalopathy; F01.51 Vascular dementia, unspecified severity, with behavioral disturbance; R53.1 Weakness; E78.5 Hyperlipidemia, unspecified; E11.65 Type 2 diabetes mellitus with hyperglycemia; H91.93 Unspecified hearing loss, bilateral; G89.29 Other chronic pain; Z95.0 Presence of cardiac pacemaker; F01.50 Vascular dementia, unspecified severity, without behavioral disturbance, psychotic disturbance, mood disturbance, and anxiety; E11.649 Type 2 diabetes mellitus with hypoglycemia without coma; R29.810 Facial weakness

== ENCOUNTER 2019-07-03 16:56 | Inpatient (IN) | payer MEDICARE ==
--- NOTE | ~2019-07-03 | PN ---
PATIENT:ABIOLA ESTES MEDICAL RECORD: [id number] LOCATION:[facility] ADMISSION DATE: 07/03/19 PROGRESS NOTE DATE OF SERVICE: 07/28/2019 SUBJECTIVE: Mr. Estes is a 78-year-old male with history of arrhythmias, pacemaker secondary to AFib, diabetes, and a history of strokes. The patient has ranged from quiet incoherent to today where he is awake, bright affect, he is alert and oriented times 1, initiating conversation asking for cigarettes. His latest blood sugar was 57. He is eating 20%, 100%, and 60%. His last BM was on 07/22/2019. Sleep time was 8.5. ASSESSMENT: Unchanged. PLAN: Lack of bowel movement may be secondary to poor appetite, poor intake in the last week, multiple laxatives in place, but if not as input increases if there is no bowel output, we will ask Dr. Mcknight to intervene. Otherwise, working with family, son, who apparently is a DPOA in [place], work with case management to get necessary papers for group home placement. Case discussed with nursing, chart reviewed and the patient interviewed. TRANSINT:[id number] Voice Confirmation ID: [id number] DOCUMENT ID: [id number] DEMARIO ALMONTE MD CC: [id number] DICTATION DATE: 07/28/191421 TECHNICAL MARKETING ENGINEER: 07/29/19 0257 ADM IN [place] [id number] [place] [id number]
[2019-07-03 17:07] VITALS: BP 117/71
--- NOTE | 2019-07-03 18:01 | NUR ---
PT WAS ADMITTED FROM ICU FOR CONFUSION, AGGRESSION, AND SEXUALLY INAPPROPRIATE WITH STAFF. PT IS RESTLESS AND DOES ATTEMPT TO GRAB AT STAFF. PT IS REDIRECTED BUT SHOWS NO SIGNS OF RETAINING OR UNDERSTANDING. PT IS A DNR PER HOSPITAL RECORDS. VERBAL CONSENT FROM SON RYNE ESTES AT [phone]. GLASSES AND HEARING AIDES IN HIS ROOM. FALL PRECAUTIONS IN PLACE.
--- NOTE | 2019-07-04 02:19 | NUR ---
B.) PT IS ALERT AND ORIENTED TO SELF AND AT TIMES SITUATION. HE IS RECEIVED IN HIS ROOM IN THE BED EATING DINNER. HE IS PLEASANT WITH STAFF BUT CONSTANTLY TRYING TO GET UP WITHOUT ASSIST. HE REMAINS VERY CONFUSED. I.) PROVIDED PM MEDICATIONS. REDIRECT OFTEN. R.) COMPLIANT WITH ALL MEDICATIONS. DIFFICULT TO REDIRECT AT TIMES. P.) WILL CONTINUE TO MONITOR.
[2019-07-04 05:39] VITALS: BP 117/71
[2019-07-04 08:30] VITALS: BP 94/55
--- NOTE | 2019-07-04 11:30 | NUR ---
PATIENT REFUSED FSBS X 3 ATTEMPTS.
[2019-07-04 13:06] VITALS: Wt 77.7 kg
--- NOTE | 2019-07-04 16:06 | NUR ---
PATIENT ALERT, AGITATED, BELLIGERANT AND CONFUSED. MEDS MIXED WITH PUDDING AND ADMIN PER ORDERS. PT. COMBATIVE AT TIMES. CONT POC DIRECTED.
--- NOTE | 2019-07-04 18:36 | NUR ---
PT IS VERY RESTLESS. THINKING HIS SON IS AT THE DOOR AND ANOTHER PT IS PREVENTING HIM FROM SEEING HIS SON. NURSE ATTEMPTED TO EXPLAIN AND REDIRECT. UNABLE TO REDIRECT PT AT THIS TIME. WILL ATTEMPT TO REDIRECT AGAIN IF NEEDED.
--- NOTE | 2019-07-04 20:57 | NUR ---
B.) PT IS ALERT AND ORIENTED TO SELF ONLY. HE IS RECEIVED IN THE DAYROOM IN A KETTY-CHAIR. HE REMAINS CONFUSED AND DELUSIONAL. HE IS VERY UNSTEADY ON HIS FEET. I.) PROVIDED PM MEDICATIONS. REDIRECT OFTEN. R.) COMPLIANT WITH ALL MEDICATIONS. DIFFICULT TO REDIRECT AT TIMES. P.) WILL CONTINUE TO MONITOR.
[2019-07-05 09:05] VITALS: BP 130/57
--- NOTE | 2019-07-05 14:37 | PSY ---
PATIENT NAME:ABIOLA ESTES MEDICAL RECORD: [id number] : 38 LOCATION:[facility] ADMISSION DATE: 07/03/19 ACCOUNT: [id number] PSYCHIATRIC EVALUATION DATE OF EVALUATION: 07/04/19 IDENTIFYING DATA: The patient is 78 years old and he is admitted to the hospital on a voluntary basis. CHIEF COMPLAINT: Aggression. HISTORY OF PRESENT ILLNESS: The patient had initially been admitted to the intensive care unit for aggressive and disruptive behaviors. He continued to have those behaviors and was subsequently transferred to the behavioral unit for treatment. The patient himself is only oriented to person and although verbal. He is not providing anything in the way of useful information. PAST MEDICAL HISTORY: Significant for stroke along with diabetes, cardiac arrhythmia with pacemaker placement and a defibrillator. He has chronic back pain and a right facial droop secondary to what I presume is a previous stroke. He apparently had another stroke recently and that was associated with the recent admission to the intensive care unit. PAST PSYCHIATRIC HISTORY: Significant for depression. FAMILY HISTORY: Unknown. ALLERGIES: No known drug allergies. CURRENT MEDICATIONS: Include Elavil, aspirin, Coreg, Plavix, hydrocodone, potassium, Pravachol, and Lasix. SOCIAL HISTORY: The patient is a former cigarette smoker. He is also a former abuser of alcohol, but has no history of recreational drug use. He is unable to tell me about his occupational functioning. He is and does have a son who is involved with his care. MENTAL STATUS EXAMINATION: The patient is awake, alert, and oriented to person only. His mood is anxious. His affect is constricted. Thought processes are disorganized. Memory, concentration, and abstraction abilities are impaired and he denies that he would seek to harm himself or others. He denies psychotic symptoms, but I do not believe he understood the question. ASSESSMENT: AXIS I: Vascular dementia. AXIS II: Status post stroke, hypertension, diabetes, cardiac arrhythmia. AXIS IV: Moderate. AXIS V: Global assessment of functioning is 30. PLAN: At this time, the patient is admitted to the hospital secondary to aggressive, sexually inappropriate and disruptive behaviors associated with a dementing illness. He will be comprehensively evaluated and treated with both mood stabilizing and memory enhancing medications. His long-term prognosis is guarded. TRANSINT:[id number] Voice Confirmation ID: [id number] DOCUMENT ID: [id number] NORM CAMPOS MD at 1437 CC: [id number] DICTATION DATE: 07/04/19 1521 SHUTTLE FINAL INSPECTOR: 07/04/19 1538 ADM IN [place] [id number] [place] [id number]
[2019-07-05 20:21] VITALS: BP 114/72
--- NOTE | 2019-07-05 20:32 | NUR ---
PATIENT IS CONFUSED, UNABLE TO LEARN AT THIS POINT, NEEDS STAFF FOR ALL CARE, COMPLIANT WITH MEDS. WILL FOLLOW POC
--- NOTE | 2019-07-06 07:38 | NUR ---
The patient is awake sitting in the w/c in the hallway. He is [place], he is wearing his amplifiers to hear in bilateral ears. He is still sleepy at this time. He is not showing any aggression this am or any inappropriate behavior. Provide prescribed meds. Redirect to appropriate behaviors. The patient is calm at this time. His affect is flat to blunted. Continue POC.
--- NOTE | 2019-07-06 10:57 | PN ---
PATIENT:ABIOLA ESTES MEDICAL RECORD: [id number] LOCATION:[facility] ADMISSION DATE: 07/03/19 PROGRESS NOTE DATE OF SERVICE: 07/05/2019 SUBJECTIVE: The patient's case was discussed with staff. He has no new complaint. OBJECTIVE: The patient is in good behavioral control today. He has not been disruptive into any significant degree. He is much calmer than he was yesterday. ASSESSMENT: Vascular dementia. PLAN: I am going to reduce the patient's Klonopin. I am going to continue other medications. I will monitor him for clinical changes. TRANSINT:[id number] Voice Confirmation ID: [id number] DOCUMENT ID: [id number] NORM CAMPOS MD at 1057 CC: [id number] DICTATION DATE: 07/05/19 1536 VOCATIONAL TECHNICAL EDUCATION DIRECTOR: 07/05/19 1723 ADM IN [place] [id number] [place] [id number]
--- NOTE | 2019-07-06 11:53 | NUR ---
FSBS 58, ATTEMPTED TO GIVE HIM ORANGE JUICE WITH SUGAR, HE REFUSES AND SAYS "PLAIN WATER."
[2019-07-06 20:40] VITALS: BP 104/67
--- NOTE | 2019-07-06 21:07 | NUR ---
PATIENT IS VERY CONFUSED, SPEAKS WITH A VERY LOW VOICE, NO AGGRESSION NOTED. COMPLIANT WITH MEDS. WILL FOLLOW POC
--- NOTE | 2019-07-07 08:51 | NUR ---
hearing aids charged and placed into pts ear.
[2019-07-07 08:55] VITALS: BP 128/90
--- NOTE | 2019-07-07 09:17 | PN ---
PATIENT:ABIOLA ESTES MEDICAL RECORD: [id number] LOCATION:[facility] ADMISSION DATE: 07/03/19 PROGRESS NOTE DATE OF SERVICE: 07/06/2019 SUBJECTIVE: The patient's case was discussed with staff. He has no new complaint. OBJECTIVE: The patient's dementia is very advanced. He is easily agitated, but currently is calm. He is only oriented to person. ASSESSMENT: Vascular dementia. PLAN: The patient will be maintained on current medicines, which I have reviewed. His long-term prognosis is guarded. I am going to change his Ultram to scheduled in the event that perhaps some of his agitation is related to discomfort that he cannot adequately verbalize. TRANSINT:[id number] Voice Confirmation ID: [id number] DOCUMENT ID: [id number] NORM CAMPOS MD at 0917 CC: [id number] DICTATION DATE: 07/06/19 1135 PICC NURSE: 07/06/19 1201 ADM IN [facility] [address] [place] [address]
--- NOTE | 2019-07-07 12:35 | NUR ---
REC'D PT IN HALLWAY IN RECLINING CHAIR. BLOOD SUGAR 55. THIS NURSE ENCOURAGED PT TO EAT AND DRINK. PT. UNABLE TO DO SO AT THIS TIME. NEW ORDER FOR GLUCOSE GEL. GLUCOSE GEL GIVEN PER ORDER. BLOOD SUGAR RECHECKED RESULT OF 62. NEW ORDER NOTED FOR DEXTROSE SQ PRN. PT ENCOURAGED TO EAT PER STAFF. PT FINALLY ATE SOME PUDDING PER STAFF. BLOOD SUGAR RECHECKED WITH RESULT OF 75. WILL CONTINUE TO MONITOR BLOOD SUGAR FOR HYPOGLYCEMIA. NO BEHAVIOR SNOTED AT THIS TIME. CALM AND COOPERATIVE WITH ASSESSMENT. MED COMPLIANT. REDIRECT AND REORIENT NEEDED. WILL CPOC.
[2019-07-07 19:37] VITALS: BP 107/66
--- NOTE | 2019-07-07 20:31 | NUR ---
RECEIVED IN DAYROOM. SITTING IN A CHAIR WITH PEERS AT HIS SIDE. CALM AND COOPERATIVE WITH CARE AND ASSESSMENT. NO SIGNS OF AGGRESSION OR SEXUALLY INAPPROPRIATTE BEHAVIOR. REDIRECT AND REORIENT NEEDED. CONTINUES TO SIT CALMLY IN DAYROOM. CONTINUE PLAN OF CARE
--- NOTE | 2019-07-08 09:07 | NUR ---
Nutrition Follow-up: Nutrition consult for high fiber, complex carb and protein. Noted HYDRAULIC AUTO JACK MECHANIC note on 07/05/19 recommending to pt it remain on puree with honey thick liquids. Diet: Diabetic Puree with honey thicken liquids + Glucerna with meals PO intake: ~19% average x last 9 meals No BM recorded since admit. WT: 186# (07/04/19); Admit WT: 186# (07/03/19) Meds noted: tosha shah. Labs noted: A1C 5.4% (07/06/19), POC Glu 46-72mg/dL. Pt is currently getting Glucerna which is high protein. Will update diet order to whole wheat/whole grain for complex CHO. Encourage menu selections and PO intake of meats, beans, and vegetables. Will continue to monitor PO intake and wt trend. RD available if nutrition support recommendations needed. RD following.
[2019-07-08 10:10] VITALS: BP 109/60
--- NOTE | 2019-07-08 15:28 | PN ---
PATIENT:ABIOLA ESTES MEDICAL RECORD: [id number] LOCATION:[facility] ADMISSION DATE: 07/03/19 PROGRESS NOTE DATE OF SERVICE: 07/07/2019 SUBJECTIVE: The patient's case was discussed with staff. He has no new complaint. OBJECTIVE: The patient denies intent to harm himself or others. He is tolerating his medicines well. Unfortunately, his blood sugar has been significantly labile, this may be related to him not eating adequately. ASSESSMENT: Vascular dementia. PLAN: The patient is going to be maintained on current medicines. His prognosis is guarded. TRANSINT:[id number] Voice Confirmation ID: [id number] DOCUMENT ID: [id number] NORM CAMPOS MD at 1528 CC: [id number] DICTATION DATE: 07/07/19 1015 ELECTRIFIER OPERATOR: 07/07/19 1100 ADM IN [place] [id number] [place] [id number]
--- NOTE | 2019-07-08 16:31 | NUR ---
PT IS AWAKE AND ALERT TO SELF ONLY. CALM AND COOPERATIVE WITH ASSESSMENT. PRESCRIBED MEDS PROVIDED ORDERED. MED COMPLIANT. REDIRECTA ND REORIENT NEEDED. NO BEHAVIORS NOTED AT THIS TIME. FALL PRECAUTIONS IN PLACE. WILL CPOC.
[2019-07-08 19:30] VITALS: BP 127/65
--- NOTE | 2019-07-08 19:53 | NUR ---
RECEIVED IN BEDROOM, ATTEMPTS TO STAND WITHOUT ASSIST FROM BED. ROSENDA ALARM SOUNDING. UNABLE TO REDIRECT. CONTINUES TO STAND WITHOUT ASSIST VERY CONFUSED. INCREASING ANXIETY. CONTINUE TO REDIRECT AND REORIENT. IN BED WITH EYES OPEN AT THIS TIME. CONTINUE PLAN OF CARE
--- NOTE | 2019-07-08 20:15 | NUR ---
PATENT VERY CONFUSED. SEXUALLY INAPPROPRIATE WITH STAFF MEMBER. STANDING UP FROM BED. INCREASING ANXIETY. PRN ATIVAN 0.5 MG IM GIVEN FOR ANXIETY. PRN HALDOL 2 MG IM GIVEN FOR PSYCHOTIC BEHAVIOR. CONTINUE TO MONITOR FOR SAFETY.
--- NOTE | 2019-07-09 07:45 | NUR ---
REC'D PT IN RECLINING CHAIR BY NURSES STATION. CALM AND COOPERATIVE WITH ASSESSMENT. PT CAN BE SEXUALLY INAPPROPRIATE WITH STAFF AT TIMES. PRESCRIBED MEDS PROVIDED ORDERED. MED COMPLIANT. TAKES MEDS CRUSHED IN APPLESAUCE. REDIRECT AND REORIENT NEEDED. FALL PRECAUTIONS IN PLACE. WILL CPOC.
[2019-07-09 09:53] VITALS: BP 112/70
--- NOTE | 2019-07-09 12:23 | PN ---
PATIENT:ABIOLA ESTES MEDICAL RECORD: [id number] LOCATION:[facility] ADMISSION DATE: 07/03/19 PROGRESS NOTE DATE OF SERVICE: 07/08/2019 SUBJECTIVE: The patient's case was discussed with staff. He has no new complaint. OBJECTIVE: The patient is in better behavioral control, although he does appear a little sedated. ASSESSMENT: Vascular dementia. PLAN: I am going to reduce the patient's Geodon slightly along with the Ultram. He will be monitored for clinical changes associated with this reduction. His long-term prognosis is guarded. He continues to have a very brittle fingerstick blood sugars indicating poor control of his diabetes. TRANSINT:[id number] Voice Confirmation ID: [id number] DOCUMENT ID: [id number] NORM CAMPOS MD at 1223 CC: [id number] DICTATION DATE: 07/08/19 1605 WASTEWATER TREATMENT PLANT OPERATOR: 07/08/19 204 ADM IN [facility] [address] [place] [address]
--- NOTE | 2019-07-09 13:56 | NUR ---
BLOOD SUGAR 73
--- NOTE | 2019-07-09 18:05 | NUR ---
THIS NURSE NOTICED PT EYES APPEARED FIXED. COLOR WAS PALE. PT NONRESPONSIVE. THIS NURSE HAD MHT GET V/S AND THIS NURSE STERNAL RUBBED HIS CHEST. PT STILL NONRESPONSIVE. V/S B/P 73/20, P- 77, R, 14. BLOOD SUGAR RESULT OF 99. UNABLE TO GET O2 SAT AT THIS TIME. RAPID RESPONSE CALLED X 3. PT BROUGHT UP FRONT TO ROOM AND PUT IN BED IN [place] POSTION. SEE RAPID REPORT FOR RESULTS. DR. MORALES NOTIFIED. NEW ORDERS FOR CBC, UA, AND CXR ORDERED STAT. UA OBTAINED AND URINE SENT TO LAB. CXR AND LAB COMPLETED. AWAITING ON RESULTS.
--- NOTE | 2019-07-09 18:15 | NUR ---
PT MARIAMA MICHELE NOTIFIED OF RAPID RESPONSE.
[2019-07-09 18:42] LABS: BASOPHILS 0.3 % (0-2); EOSINOPHILS 0.9 % (0-7); HEMATOCRIT 41.8 % (42.0-54.0); HEMOGLOBIN 13.9 g/dL (13.5-17.5); IMMATURE GRANULOCYTES 0.2 % (0-5); LYMPHOCYTES 26.2 % (15-50); MCH 30.5 pg (26.0-34.0); MCHC 33.3 g/dL (31.0-37.0); MCV 91.7 fL (80.0-100.0); MEAN PLATELET VOLUME 11.4 fL (7.4-10.4); MONOCYTES 10.2 % (2-11); NEUTROPHILS 62.2 % (40-80); PLATELET COUNT 259 10x3/uL (130-400); RBC 4.56 10x6/uL (4.20-6.10); RDW 13.7 % (11.5-14.5); WBC 10.2 10x3/uL (4.8-10.8)
[2019-07-09 19:21] LABS: BILIRUBIN NEGATIVE (NEGATIVE); GLUCOSE NEGATIVE (NEGATIVE); KETONE NEGATIVE (NEGATIVE); NITRITE NEGATIVE (NEGATIVE); UROBILINOGEN NORMAL (NORMAL)
--- NOTE | 2019-07-09 19:39 | NUR ---
RECEIVED IN BEDROOM. RESTING IN BED WITH EYES CLOSED. LETHARGIC. IN AND OUT CATH FOR STAT U/A. ROSENDA ALARM ON. RESTING IN BED WITH EYES OPEN AT THIS TIME. NURSE IN ROOM TAKING VITALS. CONTINUE TO MONITOR. CONTINUE PLAN OF CARE
[2019-07-09 20:10] VITALS: BP 105/57
--- NOTE | 2019-07-09 21:00 | NUR ---
PATIENT AWAKE. VERY CONFUSED. THINKS HE IS IN A BOAT. WANT TO TRY AND SAVE US. ATTEMPTS TO STAND WITHOUT ASSIST CONSYANTLY. ROSENDA ALARM SOUNDING. NOT ABLE TO REDIRECT OR REORIENT AT THIS TIME. CONTINUE TO MONITOR FOR SAFETY.
--- NOTE | 2019-07-09 22:20 | NUR ---
PATIENT VERY CONFUSED. DELUSIONAL. INCREASING ANXIETY. PRN ATIVAN 0.5 MG IM GIVEN FOR ANXIETY AND PRN HALDOL 2 MG IM GIVEN FOR PSYCHOTIC BEHAVIORS. CONTINUE TO MONITOR FOR SAFETY.
--- NOTE | 2019-07-09 23:00 | NUR ---
CONTINUES TO BE RESTLESS IN BED.
[2019-07-10 06:16] LABS: ALBUMIN 3.5 g/dL (3.4-5.0); BILIRUBIN - TOTAL 0.58 mg/dL (0.2-1.3); CALCIUM 8.7 mg/dL (8.5-10.1); CARBON DIOXIDE 26.6 mmol/L (21.0-32.0); POTASSIUM - SERUM 3.6 mmol/L (3.5-5.1); PROTEIN - SERUM 7.1 g/dL (6.4-8.2)
[2019-07-10 09:13] VITALS: BP 103/50
--- NOTE | 2019-07-10 10:42 | PN ---
PATIENT:ABIOLA ESTES MEDICAL RECORD: [id number] LOCATION:[facility] ADMISSION DATE: 07/03/19 PROGRESS NOTE DATE OF SERVICE: 07/09/2019 SUBJECTIVE: The patient's case was discussed with staff. He has no new complaint. OBJECTIVE: The patient was agitated last night, required some p.r.n. medication. He has almost no recollection of this and appears sedated today. ASSESSMENT: Vascular dementia. PLAN: The patient will be treated with Seroquel to assist with his behavior problems. His long-term prognosis is guarded. TRANSINT:[id number] Voice Confirmation ID: [id number] DOCUMENT ID: [id number] NORM CAMPOS MD at 1042 CC: [id number] DICTATION DATE: 07/09/19 1243 WEB CONTENT EXECUTIVE: 07/09/19 1748 ADM IN [place] [id number] [place] [address]
--- NOTE | 2019-07-10 11:00 | NUR ---
AWAKE AND ALERT TO SELF ONLY. NO AGGRESSION TODAY. CALM AND COOPERATIVE WITH CARE AND ASSESSMENT. ADMINISTER PRESCRIBED MEDICATIONS. COMPLIANT WITH MEDICATIONS. MONITOR FOR SAFETY AND CONTINUE PLAN OF CARE.
[2019-07-10 23:13] VITALS: BP 110/52
--- NOTE | 2019-07-10 23:52 | NUR ---
PATIENT IS CONFUSED, DOES NOT MAKE NEEDS KNOWN, DEPENDS ON STAFF FOR ALL NEEDS TO BE MET, SLEEPS MOST OF THE TIME. WILL MONITOR
--- NOTE | 2019-07-11 08:19 | NUR ---
PT SITTING IN CHAIR WITH EYES CLOSED. RESP EVEN AND NONLABORED. NO ACUTE DISTRESS NOTED. PT IS CONFUSED ALERT TO SELF ONLY. REDIRECT AND REORIENT NEEDED. PT SLEPT 10.25 HOURS. PT IS COMPLIANT WITH MEDS, VITALS AND ASSESSMENT. PT IS A TOTAL ASSIST. CHAIR ALARM IN PLACE AND ACTIVE. WILL CONT PLAN OF CARE.
[2019-07-11 09:03] VITALS: BP 123/68
--- NOTE | 2019-07-11 10:27 | NUR ---
Nutrition Follow-up: Chart reviewed. Pt was seen by RATE AND COST ANALYST yesterday, RATE AND COST ANALYST notes "overt" coughing with thin liquids and regular solids, RATE AND COST ANALYST also states that RN states that pt with increase PO intake on upgraded diet. Noted that diet order was changed by MD yesterday as well. Diet changed from Diabetic (complex CHO) Mech Soft/Ground Honey thick liquids + Glucerna TID to diet listed below. Diet: Regular Unrefined foods, mech soft, 6 small meals PO intake: ~39% average x last 9 meals Last BM: none recorded since admit, BM noted in MD note for 07/09/19 WT: 156# (07/08/19)- WC weight; Admit WT: 186# (07/03/19)- no wt source/"unable, pt. combative." Suspect inaccuracy of admit wt vs most recent weight? Note Pt had a bedscale weight of 191# (06/09/19). This is a 35# wt loss in <1 month if most recent weight is accurate. Meds noted: tosha shah. Labs noted: POC Glu 75. Recommend adding oral nutrition supplement back to diet order. May add oral nutrition supplements with meals and inbetween to promote 6 small meals/snacks and help meet estimated energy needs. PO diet per MD and RATE AND COST ANALYST. Regular diet is nutritionally appropriate this time. Recommend continue appetite stimulant as medically feasible and continue encouraged PO intake. RD is available for nutrition support recommendations if needed. RD will continue to monitor PO intake and wt trend. RD following.
--- NOTE | 2019-07-11 11:44 | NUR ---
PT FSBS IS 65 MG/DL. PT DID NOT EAT BREAKFAST DUE TO BEING DROWSY. WILL ATTEMPT TO ASSIST PT WITH LUNCH. MEDICATIONS NOT GIVEN DUE TO BEING DROWSY.
--- NOTE | 2019-07-11 14:33 | NUR ---
NURSE ATTEMPTED TO PUT PT HEARING AID INTO HIS LEFT EAR PT PULLED IT OUT OF HIS EAR WHILE MAKING A FACE. NURSE SHAVED PT AND WHEN SHE WIPED HIS FACE HE PULLED BACK ON THE LEFT SIDE. MURSE LOOKED INTO HIS LEFT EAR DID NOT SEE ANY REDNESS NOTED IN CANAL. STAFF ATTEMPTED TO GET PT TO EAT AT LUNCH AND PT REFUSED FOOD, DRINK AND PUDDING. NOT STATING ANYTHING.
--- NOTE | 2019-07-11 17:31 | NUR ---
PT FSBS: 61 MG/DL. STAFF ATTEMPTS TO FEED PT AND HE REFUSES. PUSHED HAND AWAY FROM FOOD. PT REFUSES TO EAT ANYTHING. AWAKE AND AROUSABLE AT THIS TIME. WILL CONT TO ENCOURAGE PT TO EAT.
--- NOTE | 2019-07-11 18:26 | NUR ---
PT REFUSED TO EAT DINNER AND ASKED FOR A CIGARETTE. WHEN TOLD HER COULDNT HAVE THAT HE ASKED FOR WATER. WATER GIVEN AND PT DRANK SOME OF IT. OFFERED ENSURE. PT REFUSED ASKING FOR WATER.
[2019-07-11 19:38] VITALS: BP 110/50
--- NOTE | 2019-07-11 23:56 | NUR ---
B)RECEIVED PATIENT SITTING IN THE DAYROOM. MORE ALERT AND MAKING NEEDS KNOWN. ORIENTED TO SELF ONLY. I)ADMINISTER MEDS AND MONITOR COMPLIANCE. REORIENT NEEDED. R)PATIENT FIRST KNOCKED WATER FROM NURSES HAND RELATING HE WAS NOT GOING TO TAKE HIS MEDICINES UNTIL HE WENT TO THE BATHROOM. NURSE SPOKE TO PATIENT AND HE DID TAKE MEDICINE WITHOUT FURTHER RESISTANCE. POOR REORIENTAION DUE TO IMPAIRED ABILITY TO PROCESS AND RETAIN INFORMATION. P)COMTINUE POC AND PROVIDE SAFE ENVIRONMENT.
--- NOTE | 2019-07-12 07:22 | NUR ---
REC'D PT LAYING IN BED WITH EYES CLOSED. NO ACUTE DISTRESS NOTED. RESP EVEN AND NONLABORED. PREVIOUS SHIFT REPORTED NO BEHAVIORS. PT COMPLIANT WITH MEDS, VITALS AND ASSESSMENTS. PT REQUIRES TOTAL ASSIST. BED ALARM IN PLACE AND ACTIVE. WILL CONT PLAN OF CARE.
--- NOTE | 2019-07-12 10:47 | NUR ---
SW SPOKE TO PT'S SON, RYNE, TO DISCUSS DISCHARGE PLANNING NEEDS. SW DISCUSSED HOSPICE AND ASSISTED PLACEMENT. SW RELAYED WHAT PPW WOULD BE NEEDED FOR ASSISTED PLACEMENT. RYNE VERBALIZED UNDERSTANDING OF PT'S CONDITION AND DISCUSSION.
[2019-07-12 11:15] VITALS: BP 117/58
--- NOTE | 2019-07-12 11:21 | NUR ---
PT SITTING AT TABLE AT THIS TIME. PT IS AWAKE AND ALERT THIS SHIFT. PT IS COMPLIANT WITH MEDS, VITALS AND ASSESSMENTS. PT ATTEMPTED TO GRAB THIS NURSE STATING "HMM YOU SMELL GOOD." NURSE ATTEMPTED TO REDIRECT PT'S BEHAVIOR. PT IS ALERT, CONFUSED AND ORIENTED TO SELF ONLY. PT IS A TOTAL ASSIST WITH ADLS. CHAIR ALARM IN PLACE AND ACTIVE. WILL CONT PLAN OF CARE.
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
[2019-07-12 14:14] VITALS: BP 127/64
[2019-07-12 20:00] VITALS: BP 97/64
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
[2019-07-13 08:07] VITALS: BP 130/62
--- NOTE | 2019-07-13 08:15 | NUR ---
The patient is awake and he is pleasant he has not shown aggression this am. He has poor insight into his situation. He is in a gerichair. Provide prescribed meds. The patient is compliant with meds. Compliant with meds.
[2019-07-13 19:56] VITALS: BP 127/63
--- NOTE | 2019-07-13 22:22 | NUR ---
B.) PT IS ALERT AND ORIENTED TO HIS SELF ONLY. HE HAS POOR INSIGHT INTO HIS SITUATION. HE IS ABLE TO MAKE HIS NEEDS KNOWN. HE NEEDS NO ASSISTANCE WITH TRANSFERS TODAY. HE HAS MOMENTS OF SEXUAL INAPPROPRIATE CONVERSATION. I.) PROVIDED PM MEDICATIONS PRESCRIBED. REDIRECT OFTEN. R.) COMPLIANT WITH ALL MEDICATIONS. CAN BE DIFFICULT TO REDIRECT AT TIMES. P.) WILL CONTINUE TO MONITOR.
--- NOTE | 2019-07-14 00:31 | NUR ---
PT AGGRESSIVE WITH STAFF. DIFFICULT TO REDIRECT. PO ATIVAN 0.5MG OFFERED, PT SPIT INTO FLOOR. AGGITATED WITH STAFF. IM ATIVAN 0.5MG TO LEFT DELTOID. WILL CONTINUE TO MONITOR.
--- NOTE | 2019-07-14 01:10 | NUR ---
PT RESTING CALMLY IN GERICHAIR IN HALLWAY. NO SIGNS OF DISTRESS. WILL CONTINUE TO MONITOR.
[2019-07-14 09:31] VITALS: BP 167/82
--- NOTE | 2019-07-14 09:46 | NUR ---
PT EXTREMELY GROGGY THIS AM. OPENS EYES UPON TOUCHING PT. PT BLOOD SUGAR REASSESSED AT THIS TIME RESULTS 62. PT CLOSES EYES APPEARING TO GO BACK TO SLEEP. UNABLE TO ADMINISTER AM MEDICATIONS AT THIS TIME. WILL ATTEMPT UPON PT AWAKENING AND BEING ABLE TO SAFELY ADMINISTER MEDICATIONS
--- NOTE | 2019-07-14 11:30 | NUR ---
PT BS ASSESSED PER MD ORDERS. BS 46 AT THIS TIME. ORANGE JUICE WITH SUGAR THICKENED GIVEN. CONSUMED WITHOUT ANY DIFFICULTY. WILL CONTINUE TO MONITOR.
--- NOTE | 2019-07-14 12:20 | NUR ---
PT BS RE ASSESSED AT THIS TIME. BS 106, PT CONSUMED SOME LUNCH. REMAINS CALM, WITHOUT ANY EXHIBITED ANXIETY, AGITATION OR INAPPROPRIATE BEHAVIORS
--- NOTE | 2019-07-14 17:11 | NUR ---
PATIENT SEDATED UNTIL AROUND NOON THIS SHIFT. AFTERWARDS, PT. WAS COOPERATIVE AND ALERT WITH NO ADVERSE BEHAVIORS NOTED. DAILY MEDS ADMIN WHEN PT. AWAKENED AND COULD SAFELY SWALLOW. FULLY MED COMPLIANT. COOPERATIVE WITH POC. PT CONTINUES TO HAVE DIFFICULTY SWALLOWING FOOD AND DRINK.
--- NOTE | 2019-07-14 19:48 | NUR ---
RECEIVED IN DAYROOM. SITTING IN A RECLINER AT THE TABLE. RESTLESS. ATTEMOPTS TO STAND WITHOUT ASSIST. NO SIGNS OF AGGRESSION OR SEXUALLY INAPPROPRIATE BEHAVIOR. REDIRECT AND REOIRENT NEEDED. CONTNUES TO SIT AT TABLE. CONTINUE PLAN OF CARE
[2019-07-14 20:04] VITALS: BP 108/55
--- NOTE | 2019-07-14 20:06 | NUR ---
FSBS 408. RECHECKED IMMEDIATELY ACTUALLY 121. NO CRITICAL LAB DRAW NEEDED.
[2019-07-15 03:06] LABS: INSULIN - TOTAL 6.9 uU/mL (())
[2019-07-15 08:57] VITALS: BP 112/70
--- NOTE | 2019-07-15 12:38 | NUR ---
PT IS AWAKE AND ALERT TO SELF ONLY. CALM AND COOPERATIVE WITH ASSESSMENT. PRESCRIBED MEDS PROVIDED ORDERED. NO AGGRESSION NOTED AT THIS TIME. MED COMPLIANT. REDIRECT AND REORIENT NEEDED. FALL PRECAUTIONS IN PLACE. WILL CPOC.
[2019-07-15 13:10] LABS: ALBUMIN 3.4 g/dL (3.4-5.0); ANION GAP 10.7 mmol/L (8-16); BILIRUBIN - TOTAL 0.43 mg/dL (0.2-1.3); CALCIUM 9.1 mg/dL (8.5-10.1); CARBON DIOXIDE 29.6 mmol/L (21.0-32.0); CREATININE - SERUM 1.2 mg/dL (0.6-1.3); POTASSIUM - SERUM 3.3 mmol/L (3.5-5.1); PROTEIN - SERUM 7.3 g/dL (6.4-8.2)
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
[2019-07-15 19:39] VITALS: BP 104/68
--- NOTE | 2019-07-15 23:45 | NUR ---
RECEIVED IN HALLWAY OUTSIDE OF NURSES STATION SITTING IN A RECLINING CHAIR. CALM AND COOPERATIVE WITH CARE AND ASSESSMENT. NO SIGNS OF AGGRESSION. REDIRECT AND REORIENT NEEDED. RESTING IN BED WITH EYES CLOSED. CONTINUE PLAN OF CARE
[2019-07-16 08:36] VITALS: BP 118/59
--- NOTE | 2019-07-16 10:42 | NUR ---
PT IS AWAKE AND ALERT TO SELF ONLY. CALM AND COOPERATIVE WITH ASSESSMENT. PRESCRIBED MEDS PROVIDED ORDERED. MED COMPLIANT. NO AGGRESSION NOTED. REDIRECT AND REORIENT NEEDED. WILL CPOC.
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
--- NOTE | 2019-07-16 22:09 | NUR ---
RECEIVED IN HALLWAY OUTSIDE OF NURSES STATION. SITTING IN A RECLINING CHAIR. RESTLESS IN CHAIR. CALM AND COOPERATIVE WITH CARE AND ASSESSMENT. INCREASING ANXIETY. ATTEMPTS TO STAND WITHOUT ASSIST. VERY CONFUSED. CONTINUES TO BE RESTLESS. CONTINUES PLAN OF CARE
[2019-07-17 01:08] VITALS: BP 120/60
--- NOTE | 2019-07-17 08:00 | NUR ---
PT IS AWAKE AND ALERT TO SELF ONLY. CALM AND COOPERATIVE WITH ASSESSMENT. PRESCRIBED MEDS PROVIDED ORDERED. MED COMPLIANT. PT IS VERY SLEEPY TODAY. WAS PRN ON [employer] PER REPORT. REDIRECT AND REORIENT NEEDED. NO OTHER BEHAVIORS NOTED AT THIS TIME. FALL PRECAUTIONS IN PLACE. WILL CPOC.
[2019-07-17 09:57] VITALS: BP 114/60
--- NOTE | 2019-07-17 17:41 | NUR ---
B/S RECHECKED RESULT OF 85.
[2019-07-17 20:24] VITALS: BP 124/59
--- NOTE | 2019-07-17 22:53 | NUR ---
B.) PT IS RECEIVED IN THE DAYROOM IN A KETTY-CHAIR. HE IS ASLEEP BUT EASY TO AROUSE. HE IS RESTING CALMLY IN HIS BED AT THIS TIME. HE IS GROGGY. I.) PROVIDED PM MEDICATION. R.) COMPLIANT WTIH ALL MEDICATIONS. P.) WILL CONTINUE TO MONITOR.
[2019-07-18 09:03] VITALS: BP 115/82
[2019-07-18 09:12] VITALS: BP 142/82
--- NOTE | 2019-07-18 11:07 | NUR ---
Nutrition Follow-up: Diet: Regular diet unrefined foods, Mech soft/ground meat, honey thick liquids, 6 small meals + Glucerna (physician ordered/managed diet) PO intake: ~31% average x last 9 meals; PO intake of supplement as recorded 0% Last BM: 07/17/19 (per MD notes). Most recent WT: 156# (07/08/19); Admit WT: 186# (07/03/19) Meds noted: senokot, metamucil, colace, megace. New labs pending. Needs new weight, suspect inaccuracy in most recent weight. Recommend continue to encourage PO intake and oral nutrition supplements. PO diet per MD. Will continue to monitor and RD available for nutrition recommends. RD following.
[2019-07-18 11:17] LABS: BASOPHILS 0.1 % (0-2); EOSINOPHILS 0.3 % (0-7); HEMATOCRIT 38.2 % (42.0-54.0); HEMOGLOBIN 12.8 g/dL (13.5-17.5); IMMATURE GRANULOCYTES 0.2 % (0-5); LYMPHOCYTES 18.6 % (15-50); MCH 30.5 pg (26.0-34.0); MCHC 33.5 g/dL (31.0-37.0); MEAN PLATELET VOLUME 10.5 fL (7.4-10.4); MONOCYTES 13.6 % (2-11); NEUTROPHILS 67.2 % (40-80); PLATELET COUNT 259 10x3/uL (130-400); RDW 13.8 % (11.5-14.5); WBC 11.3 10x3/uL (4.8-10.8)
[2019-07-18 11:32] LABS: ALKALINE PHOSPHATASE 66 U/L (30-120); ALT (SGPT) 16 U/L (10-68); BILIRUBIN - TOTAL 0.71 mg/dL (0.2-1.3); CALC OSMOLALITY 280 mosm/kg (275-300); CALCIUM 9.1 mg/dL (8.5-10.1); CARBON DIOXIDE 26.3 mmol/L (21.0-32.0); CHLORIDE - SERUM 108 mmol/L (98-107); GLUCOSE 82 mg/dL (74-106); POTASSIUM - SERUM 3.6 mmol/L (3.5-5.1); PROTEIN - SERUM 7.3 g/dL (6.4-8.2); SODIUM 141 mmol/L (136-145); UREA NITROGEN 14 mg/dL (7-18); eGFR NON AFRICAN AMERICAN 76 mL/min (90-120)
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
--- NOTE | 2019-07-18 16:30 | NUR ---
PATIENT SLEPT MOST OF SHIFT, AROUSING AT MEALTIMES ONLY. COOPERATIVE WITH STAFF. NO ADVERSE BEHAVIORS. MEDS ADMIN WITH NO ADVERSE REACTION NOTED. CONT PLAN OF CARE DIRECTED.
--- NOTE | 2019-07-18 16:31 | PN ---
PATIENT:ABIOLA ESTES MEDICAL RECORD: [id number] LOCATION:[facility] ADMISSION DATE: 07/03/19 PROGRESS NOTE DATE OF SERVICE: 07/10/2019 SUBJECTIVE: The patient's case was discussed with staff. He has no new complaint. OBJECTIVE: The patient is a little sedated today. He continues to have this unusual fluctuation in his blood sugars that another doctor is addressing. His behavior is also inappropriate as he has been verbally inappropriate sexually. ASSESSMENT: No change in diagnoses. PLAN: Current medicines have been reviewed and will be maintained. His long-term prognosis is guarded. TRANSINT:[id number] Voice Confirmation ID: [id number] DOCUMENT ID: [id number] NORM CAMPOS MD at 1631 CC: [id number] DICTATION DATE: 07/10/19 1137 CRISIS COUNSELOR: 07/10/19 1549 ADM IN [place] [id number] [place] [address]
[2019-07-18 20:00] VITALS: BP 107/60
--- NOTE | 2019-07-18 21:42 | NUR ---
B.) PT IS ALERT AND ORIENTED TO SELF ONLY. HE IS RECEIVED IN THE DAYROOM IN HIS KETTY-CHAIR. HE IS SLEEPY BUT EASY TO AROUSE. HE IS UNABLE TO MAKE HIS NEEDS KNOWN. I.) PROVIDED PM MEDICATION. R.) COMPLIANT WITH ALL MEDICATIONS. P.) WILL CONTINUE TO MONITOR.
[2019-07-19 08:30] VITALS: BP 116/63
--- NOTE | 2019-07-19 15:22 | NUR ---
PATIENT VERY TIRED THIS SHIFT, AROUSES TO VERBAL/TACTILE STIMULI. MEDS ADMIN WITH ONLY PARTIAL COMPLIANCE DUE TO PATIENT SPITTING MEDS OUT OF MOUTH, APPETITE VERY POOR. NO ADVERSE BEHAVIORS NOTED. CONT POC DIRECTD, ENCOURAGING INCREASED COMPLIANCE WITH MEDS AND MEALS.
[2019-07-19 20:19] VITALS: BP 145/101
--- NOTE | 2019-07-20 00:16 | NUR ---
RECEIVED PATIENT SITTING IN THE DAYROOM. POOR EYE CONTACT. ORIENTED TO SELF ONLY. NO INSIGHT INTO THE REASON FOR HOSPITALIZATION. WHEN TOLD PATIENT IT WAS REPORTED HE WAS AGGRESSIVE. ASKED PATEINT IF HE IS AGGRESSIVE AND HE REALTED "DEPENDS ON SOMEBODY'S MOUTH. ADMINISTER MEDS AND MONITOR COMPLIANCE. MONITOR FOR AGGRESSIVE BEHAVIOR AND REDIRECT NEEDED. MED COMPLIANT. NO AGGRESSION NOTED. COOPERATIVE WITH STAFF AND UNIT MILEU. CONTINUE POC AND PROVIDE SAFE ENVIRONMENT.
--- NOTE | 2019-07-20 06:42 | NUR ---
FSBS 60. APPLE SAUCE MIXED WITH SUGAR GIVEN TO PATIENT.
--- NOTE | 2019-07-20 06:42 | NUR ---
FSBS RECHECKED AT 69.
[2019-07-20 07:23] LABS: BASOPHILS 0.3 % (0-2); HEMATOCRIT 38.5 % (42.0-54.0); IMMATURE GRANULOCYTES 0.1 % (0-5); MCH 30.5 pg (26.0-34.0); MCHC 33.8 g/dL (31.0-37.0); MCV 90.4 fL (80.0-100.0); MEAN PLATELET VOLUME 10.6 fL (7.4-10.4); MONOCYTES 8.3 % (2-11); NEUTROPHILS 59.3 % (40-80); RBC 4.26 10x6/uL (4.20-6.10); RDW 13.7 % (11.5-14.5)
[2019-07-20 07:25] LABS: PLATELET COUNT 332 10x3/uL (130-400); WBC 7.7 10x3/uL (4.8-10.8)
--- NOTE | 2019-07-20 17:56 | NUR ---
WAS VERY DROWSY MOST OF THE DAY.DID AROUSE TO VERBAL STIMULI.TOOK MEDS CRUSHED IN APPLESAUCE WITH MUCH ENCOURAGEMENT.ORIENTED TO SELF ONLY.IS ALERT THIS EVENING .CONSUMED APPROX.50% OF EVENING MEAL.REPEATEDLY ASKING FOR A CIGERETTE.WILL CONIINUE WITH CURRENT PLAN OF CARE,MONITOR FOR CHANGES AND SAFETY.
[2019-07-20 20:00] VITALS: BP 122/64
--- NOTE | 2019-07-21 00:33 | NUR ---
PATIENT IS VERY CONFUSED, HOWEVER TONIGHT HE WAS MORE ALERT THAN I HAVE EVER SEEN HIM, HE WAS SPEAKING MODERATELY CLEAR. MEDS ARE CRUSHED AND GIVEN IN PUDDING. ALMOST TOTAL CARE. WILL FOLLOW POC
[2019-07-21 04:31] LABS: BILIRUBIN NEGATIVE (NEGATIVE); GLUCOSE NEGATIVE (NEGATIVE); KETONE SMALL mg/dL (NEGATIVE); NITRITE NEGATIVE (NEGATIVE); RED CELLS - URINE 0-5 /hpf (0-5); SPECIFIC GRAVITY 1.015 (1.005-1.020); WHITE CELLS - URINE 0-5 /hpf (NEGATIVE)
--- NOTE | 2019-07-21 08:00 | NUR ---
REC'D PT IN RECLINING CHAIR IN HALLWAY BY NURSES STATION. CALM AND COOPERATIVE WITH ASSESSMENT. PRESCRIBED MEDS PROVIDED ORDERED. MED COMPLAINT. NO AGGRESSION NOTED AT THIS TIME. REDIRECT AND REORIENT NEEDED. FALL PRECAUTIONS IN PLACE. WILL CPOC.
[2019-07-21 09:15] VITALS: BP 148/79
[2019-07-21 20:00] VITALS: BP 139/66
--- NOTE | 2019-07-21 22:18 | NUR ---
RESTLESS. VERY CONFUSED. INCREASING ANXIETY.
--- NOTE | 2019-07-21 23:13 | NUR ---
ANXIETY CONTINUES TO INCREASE. RESTLESS. ATTEMPTS TO STAND WITHOUT ASSIST. PRN ATIVAN 0.25 MG IM GIVEN FOR ANXIETY. CONTINUE TO MONITOR FOR SAFETY.
--- NOTE | 2019-07-22 01:02 | NUR ---
RESTING WITH EYES CLOSED AT THIS TIME. CONTINUE TO MONITOR.
[2019-07-22 09:28] VITALS: BP 160/128
--- NOTE | 2019-07-22 12:46 | PN ---
PATIENT:ABIOLA SANCHEZ MEDICAL RECORD: [id number] LOCATION:[facility] ADMISSION DATE: 07/03/19 PROGRESS NOTE DATE OF SERVICE: 07/20/2019 SUBJECTIVE: Mr. Sanchez is a 78-year-old male, who has had a precipitous decline in functioning. His blood sugars are generally low and the patient either seems to be awake, disruptive, sexually aggressive, or sleeping soundly even throughout the day. The latter is the case today. I was not able to wake him. His intake is slowly getting worse. He is having 10% of breakfast, 5% of lunch, 25% of dinner yesterday. His last bowel movement on July 19. Blood sugar this morning was 60. OBJECTIVE: LATEST VITAL SIGNS: 98.2, 79, 20, 145/101. ASSESSMENT: Unchanged. PLAN: As intake is becoming a harder problem. Albumin is also slightly going down from 3.4 to 3. We will discontinue morning clonazepam in an attempt to decrease sedation during the day. Case discussed with nursing. Chart was reviewed and the patient interviewed. TRANSINT:[id number] Voice Confirmation ID: [id number] DOCUMENT ID: [id number] DEMARIO ALMONTE MD at 1246 CC: [id number] DICTATION DATE: 07/20/19 1303 INSTRUCTION DEAN: 07/21/19 0123 ADM IN [place] [id number] [place] [address]
--- NOTE | 2019-07-22 12:46 | PN ---
PATIENT:ABIOLA SANCHEZ MEDICAL RECORD: [id number] LOCATION:[facility] ADMISSION DATE: 07/03/19 PROGRESS NOTE DATE OF SERVICE: 07/18/2019 SUBJECTIVE: Mr. Sanchez is a 78-year-old male who was admitted secondary to aggressiveness and sexual inappropriateness which we have seen at times during this admission, interspersed with periods of being sedated. Today, he is sedated and did not respond to interview, which is intermittently getting in the way of his eating. He ate 5% and refused lunch and dinner with 75% of snack. His latest blood sugar is 121 at 6:00 a.m. His latest sleep time 7.5. What we have noticed is some if more of acting out behavior seemed to be periods of relatively high blood sugars for him, although he stays low a lot of the time. OBJECTIVE: LATEST VITAL SIGNS: 99.3, 62, 18, 107/60, and 90%. ASSESSMENT: Unchanged. PLAN: [facility] to see him today. Referrals to nursing homes. The patient apparently has taken a great step downward since April predicating the need for the [place] hospice referral. Case discussed with nursing. Chart was reviewed and the patient interviewed. TRANSINT:[id number] Voice Confirmation ID: [id number] DOCUMENT ID: [id number] DEMARIO ALMONTE MD at 1246 CC: [id number] DICTATION DATE: 07/19/19 1625 LIFE CLAIMS EXAMINER: 07/20/19 0148 ADM IN [id number] [place] [address]
--- NOTE | 2019-07-22 12:46 | PN ---
PATIENT:ABIOLA SANCHEZ MEDICAL RECORD: [id number] LOCATION:[facility] ADMISSION DATE: 07/03/19 PROGRESS NOTE DATE OF SERVICE: 07/19/2019 SUBJECTIVE: Mr. Sanchez is a 78-year-old male with multiple medical problems including unstable diabetes. He has had a significant decline according to family since April of this year to the point now the patient is only alert and oriented times 1. He cannot ambulate on his own and his blood sugars are extremely unstable. Today, on interview, the patient was distant and I tried to engage him and he did not seem to comprehend the conversation what was going on. He is eating 85%, 5%, and 30%. Last bowel movement on the . Slept 9.5 hours. Latest blood sugar this morning was 53. His latest vital signs are 98.2, 78, 18, 116/63. The patient had a slightly high white count at 11.3 on the , the last urinalysis was on the we will obtain another one at this point. ASSESSMENT: Unchanged. PLAN: Because of his precipitous decline, [facility] has agreed to take him as a patient. We are awaiting family input and help with intermediate placement as far as their preferences. Patient is alert today, although not oriented. No sexual aggression noted. Case discussed with nursing. Chart was reviewed and the patient interviewed. His breathing - his respirations seemed to be unlabored and no coughing noted by nursing staff, so we will get a UA to see if we can help determine the slight increase in the white blood cell count. Case discussed with nursing, chart reviewed, and the patient interviewed. TRANSINT:[id number] Voice Confirmation ID: [id number] DOCUMENT ID: [id number] DEMARIO ALMONTE MD at 1246 CC: [id number] DICTATION DATE: 07/19/19 1634 INSOLE COVERER: 07/20/19 0058 ADM IN [id number] [place] [id number]
--- NOTE | 2019-07-22 14:05 | NUR ---
SW SPOKE TO PT'S SON, RYNE. SW EDUCATED ON ALL THE DIFFERENT LEVELS OF CARE AND THE AMOUNT OF CARE HIS FATHER WILL NEED IF HE DOES GO TO THE HOME ENVIRONMENT. SHON ALSO STATED NH WAS TRYING TO CONTACT HIM AND TO REVIEW WHAT IT WOULD TAKE TO GET HIM PLACED THERE. RYNE STATED HE WOULD FOLLOW UP WITH NH AND IN HOME SITTERS AND WILL SPEAK TO SW TOMORROW.
--- NOTE | 2019-07-22 17:00 | NUR ---
PT DROWSY ALL SHIFT, SLEPT PERIODICALLY. NO BEHAVIORAL ISSUES NOTED. COMPLIANT WITH MEDS. NO AGGRESSION OR INAPPROPRIATE BEHAVIOR. CONT POC DIRECTED.
[2019-07-22 20:44] VITALS: BP 129/68
--- NOTE | 2019-07-22 22:12 | NUR ---
RECEIVED IN HALLWAY OUTSIDE OF NURSES STATION. SITTING IN A RECLINING CHAIR. CALM AND COOPERATIVE WITH CARE AND ASSESSMENT. NO SIGNS OF AGGRESSION OR SEXUALLY INAPROPRIATE BEHAVIORS. REDIRECT AND REORIENT NEEDED. RESTING IN BED EYES OPEN AT THIS TIME. ATTMEPTS TO EXIT BED AT TIMES. ALARM SOUNDING. CONTINUE PLAN OF CARE
--- NOTE | 2019-07-23 08:00 | NUR ---
REC'D PT IN RECLINING CHAIR BY NURSES STATION. AWAKE AND ALERT TO SELF ONLY. CALM AND COOPERATIVE WITH ASSESSMENT. PRESCRIBED MEDS PROVIDED ORDERED. MED COMPLIANT. PT CAN BECOME AGGRESSIVE WITH STAFF AT TIMES. REDIRECT AND REORIENT NEEDED. FALL PRECAUTIONS IN PLACE. WILL CPOC.
[2019-07-23 08:20] VITALS: BP 145/74
--- NOTE | 2019-07-23 18:30 | NUR ---
RECEIVED IN DAYROOM. VERY RESTLESS. INCREASING ANXIETY. PRN ATIVAN 0.25 MG IM GIVEN FOR ANXIETY. NO SIGNS OF AGGRESSION. REDIRECT AND REORIENT NEEDED. ANXIETY CONTINUES. CONTINUE TO MONITOR FOR SAFETY. CONTINUE PLAN OF CARE
[2019-07-23 19:30] VITALS: BP 131/77
--- NOTE | 2019-07-23 19:57 | NUR ---
CONTINUES TO BE RESTLESS IN RECLINER. ATTEMPTS TO STAND WITHOUT ASSIST.
[2019-07-24 07:55] VITALS: BP 123/66
--- NOTE | 2019-07-24 10:53 | NUR ---
The patient is awake and he is talking, he is nonsensical most of the time except he did say "Where's my glasses, I won't be able to see a damn thing without them." Having staff look for them as they were not in his room. He can stand to help transfer and he can walk with assist, but he is unsteady. Provide prescribed meds. The patient is compliant with meds. Continue POC.
[2019-07-24 20:00] VITALS: BP 150/99; BP 99/54
--- NOTE | 2019-07-24 20:35 | NUR ---
PATIENT IS CONFUSED, NO SEXUAL INAPPRORIATENESS NOTED. COMPLIANT WITH MEDS, NEEDS HELP FROM STAFF WITH ALL ADL'S. NO ADVERSE REACTION NOTED TO MEDS. WILL FOLLOW POC
--- NOTE | 2019-07-25 06:50 | NUR ---
PATIENT BLOOD GLUCOSE 41. PATIENT IS ASYMPOTMATIC. ONE PUDDING CUP GIVEN AND ONE 8 OZ. CAN OF COLA.
--- NOTE | 2019-07-25 08:00 | NUR ---
REC'D PT SITTING IN CHAIR AWAITING BREAKFAST. PT HAD REMOVED GOWN AT THAT TIME. STAFF ASSISTED WITH DRESSING PT. PT IS ALERT, CONFUSED AND ORIENTED TO SELF ONLY. PT IS A FULL ASSIST WITH ADL'S. PT CAN NOT MAKE NEEDS KNOWN. HE KEEPS ASKING FOR CIGARETTES. REDIRECT AND REORIENT NEEDED. CHAIR ALARM IN PLACE AND ACTIVE. WILL CONT PLAN OF CARE.
[2019-07-25 09:40] VITALS: BP 105/71
--- NOTE | 2019-07-25 10:45 | NUR ---
Nutrition Follow-up: Chart reviewed. Noted TYPE CASTING MACHINE OPERATOR recommend alternative nutrition on 07/19/19. Noted in MD notes on 07/23/19- "plans for hospice care at discharge." Diet: Regular (unrefined foods, mech soft/ground meat, honey thick liquids) 6 small meals per day + Glucerna with meals PO intake: ~29% average x last 9 meals, sometimes drinks Glucerna Last BM: 07/23/19. WT: 211# (07/21/19)- wheelchair, 156# (07/08/19)-wheelchair, Admit WT: 186# (07/03/19)-bedscale. Inconsistencies in WTs noted. Meds noted: linzess, metamucil, colace, megace. No recent chem labs. Recommend PEG tubefeeding if aggressive nutrition therapy medically indicated and/or desired. Recommend TF of Glucerna 1.5 x 5 cans per day + 100mL flush before and after each feeding. If continuous recommend Glucerna 1.5 goal rate of 50mL/hr + H2O flush of 100mL q 2hrs. RD will continue to follow.
--- NOTE | 2019-07-25 18:41 | NUR ---
The patient continues to bump his scabs on his hands and arms. Have had to replace his bandaids on multiple areas today.
[2019-07-25 20:00] VITALS: BP 115/62
--- NOTE | 2019-07-26 01:25 | NUR ---
RECEIVED PATEINT SITTING AT THE TABLE. CONFUSED AND DISORIENTED. KEEPS ASKING FOR A LIGHT AND IS HOLDING A STRAW LIKE A CIGARETTE. TALKS TO UNSEEN OTHERS AND WHEN ASKING PATIENT WHO IS HE TALKING TO HE WILL SAY "I DON'T KNOW. RESTLESS AND FREQUENTLY TRIES GETTING UP WITHOUT ASSISTANCE. DIFFICULTY FOLLOWING VERBAL INSTRUCTION AND CAN NOT FOLLOW TOPIC OF CONVERSATION. ADMINSITER MEDS AND MONITOR COMPLIANCE. REORIENT NEEDED. MED COMPLIANT. POOR REORIENTATION DUE TO IMPAIRED ABILITY TO PROCESS AND RETAIN INFORMATION. CONTINUE POC AND PROVIDE SAFE ENVIRONMENT.
[2019-07-26 08:27] VITALS: BP 109/61
--- NOTE | 2019-07-26 09:47 | PN ---
PATIENT:ABIOLA SANCHEZ MEDICAL RECORD: [id number] LOCATION:[facility] ADMISSION DATE: 07/03/19 PROGRESS NOTE DATE OF SERVICE: 07/24/2019 HISTORY OF PRESENT ILLNESS: Mr. Sanchez is a 78-year-old male who has had a precipitous decline in the last few months. He apparently, just a few months ago, was walking, able to communicate limitedly, but now is no longer able to do so. Alert and oriented times one, maybe he does look at you, but he is not responding to questioning now. This morning, he was slightly sedated. He had needed a p.r.n. Ativan at about 1826 of 0.25, but sedated this morning. He had refused breakfast yesterday. He had 20% of lunch and dinner and 100% of snack. He slept 6-1/2 hours. PHYSICAL EXAMINATION: LATEST VITAL SIGNS: Temperature 98.1, pulse rate 80, respirations 20, blood pressure 123/66, and O2 sats 99%. ASSESSMENT: Unchanged. PLAN: Treatment team and airplane pilot said that patient's son is now communicating with nursing homes and trying to get access to financial information, so group home placement can proceed. Apparently, there is poor family dynamics between the [place] family and the son in [place] and neither wish to communicate with the other, which is making it more difficult for the [place] son to get access to local banking information and other papers that are needed. However, this proceeds. We will continue current management. Case discussed with nursing. Chart was reviewed and the patient interviewed. TRANSINT:[id number] Voice Confirmation ID: [id number] DOCUMENT ID: [id number] DEMARIO ALMONTE MD at 0947 CC: [id number] DICTATION DATE: 07/24/19 1019 NURSERY MANAGER: 07/24/19 1106 ADM IN [id number] [place] [address]
--- NOTE | 2019-07-26 09:47 | PN ---
PATIENT:ABIOLA SANCHEZ MEDICAL RECORD: [id number] LOCATION:[facility] ADMISSION DATE: 07/03/19 PROGRESS NOTE DATE OF SERVICE: 07/25/2019 SUBJECTIVE: Mr. Sanchez is a 78-year-old male, who was admitted secondary to increased confusion, aggressiveness, and sexual inappropriateness. The patient is exquisitely medication sensitive and so small changes in his medicines seem to wreak havoc as far as one extreme behavior to other between sedation and social inappropriateness and aggression. Today, he is awake. He is not able to respond to questioning. chamber worker spent much time with the patient's son in [place], first trying to get him to understand the downhill nature of the patient's course since the patient's son last saw him and then getting arrangements in place for a long-term care. The patient certainly in no way is able to care for himself and detention care is recommended. Apparently, there is family in [place], but the family in [place] and the family in [place] do not cooperate. The patient did require Ativan last night at around 7 p.m. for agitation. X-ray of thoracic spine on July 24 was ordered and chest x-ray secondary to an elevation on the patient's ribs, but no acute breaks were found. OBJECTIVE: LATEST VITAL SIGNS: 98.1, 86, 18, 105/71. LABORATORY DATA: Latest blood sugar was 41 this morning, rather low. He has been ranging in the last 2 days between 96 and 107. ASSESSMENT: Unchanged. PLAN: We will continue current management except that I might move his medications up. He had had to have p.r.n. in early evening hours and maybe moving up his quetiapine to right after supper would help with some of this evening agitation. Case discussed with nursing. Chart was reviewed and the patient interviewed. TRANSINT:[id number] Voice Confirmation ID: [id number] DOCUMENT ID: [id number] DEMARIO ALMONTE MD at 0947 CC: [id number] DICTATION DATE: 07/25/19 1104 BAND SAW OPERATOR: 07/25/19 1405 ADM IN [id number] [place] [address]
--- NOTE | 2019-07-26 09:47 | PN ---
PATIENT:ABIOLA SANCHEZ MEDICAL RECORD: [id number] LOCATION:[facility] ADMISSION DATE: 07/03/19 PROGRESS NOTE DATE OF SERVICE: 07/22/2019 SUBJECTIVE: Mr. Sanchez is a 78-year-old male, who came from a local nursing facility. He had been aggressive and sexually inappropriate. Even almost in his sleep, he continues to reach for his genital area. It has been a very difficult thing to reverse, but now he has problems, he is awake at night and asleep during the day and had required a p.r.n. Ativan 0.25 mg IM last night for that. Because of this reversal pattern, he has refused breakfast yesterday, eating only 10% of lunch and dinner. His latest blood sugar this morning was 73. Not able to interview him because he was sleeping. In treatment team, we discussed the mixup of his days and nights, we will address. So far we are waiting to hear back from the son, who is the DPOA about his preferences as far as disposition. A [id number] from another son came and visited. OBJECTIVE: His latest vitals are 98.6, 68, 16, 160/128 which is quite inconsistent with any other blood pressure reading, and 97%. ASSESSMENT: Unchanged. PLAN: We will get blood pressure redone. We will change his Seroquel from b.i.d. dosing to all one dose at 7 p.m. and his clonazepam dosing too at night at 7 p.m. as well to see if we can get better days and nights. Case discussed with treatment team. Chart reviewed and the patient interviewed. TRANSINT:[id number] Voice Confirmation ID: [id number] DOCUMENT ID: [id number] DEMARIO ALMONTE MD at 0947 CC: [id number] DICTATION DATE: 07/22/19 1406 COMMERCIAL MORTGAGE BROKER: 07/23/19 0134 ADM IN [id number] [place] [address]
--- NOTE | 2019-07-26 09:47 | PN ---
PATIENT:ABIOLA SANCHEZ MEDICAL RECORD: [id number] LOCATION:[facility] ADMISSION DATE: 07/03/19 PROGRESS NOTE DATE OF SERVICE: 07/24/2019 SUBJECTIVE: Mr. Sanchez is a 78-year-old male, who was admitted for aggressiveness and sexual inappropriateness. The patient by report and my observation seems to slowly be going downhill. Today, he was awake, alert, and oriented times 1 only. Did look at me when I talked to him, but could not respond. Nursing reports that he had slept through a lot in the morning, but in the afternoon had slight psychomotor agitation and continuing confusion. He ate 0% of breakfast, 50% lunch and dinner. His last bowel movement was on the 5th and sleep time 7.25 hours. OBJECTIVE: LATEST VITAL SIGNS: 97.3, 52, 17, 131/77, 94%. ASSESSMENT: Unchanged. PLAN: Trying to find the best balance between sedation and behavioral management for this patient as even slight med changes up or down make a huge difference in sedation and aggressive behaviors. Social work is working with the patient's son in [place], who seems to be somewhat in denial as he saw his father much better over , but half-way placement is being attempted due to the patient's utter inability to care for self currently. Case discussed with nursing. Chart was reviewed and the patient interviewed. TRANSINT:[id number] Voice Confirmation ID: [id number] DOCUMENT ID: [id number] DEMARIO ALMONTE MD at 0947 CC: [id number] DICTATION DATE: 07/24/19 1016 SOLAR CONSULTANT: 07/24/19 1414 ADM IN [facility] [address] [id number]
--- NOTE | 2019-07-26 10:24 | NUR ---
PT SITTING AND LISTENING TO MUSIC AT THIS TIME. PT ASKED THE NURSE FOR A W/C TO USE THE RESTROOM. PT IS ALERT CONFUSED DISORIENTED AND ALERT TO SELF ONLY. PT USUALLY DOES NOT MAKE NEEDS KNOWN. REDIRECT AND REORIENT NEEDED. PT IS COMPLIANT WITH MEDS, VITALS AND ASSESSMENTS. PT DOES ATTEMPT TO STAND UNASSISTED AT TIME. PT IS VERY [place] WITHOUT HEARING AIDS. NO ACUTE DISTRESS NOTED AT THIS TIME. CHAIR ALARM IN PLACE AND ACTIVE. WILL CONT PLAN OF CARE.
--- NOTE | 2019-07-26 17:21 | NUR ---
SPOKE WITH PT FAMILY MEMBERS ABOUT HIM DISCHARGING. SHE WAS ASKING IF WE COULD CALL APS ON HIS OLDER SON DUE TO NOT BEING ABLE TO REACH HIM TO TALK ABOUT HIS DISCHARGE. NURSE EXPLAINED HE HAD POA AND THE UNIT COULDNT CALL APS BECAUSE HE WAS IN A SAFE ENVIRONMENT AND BEING TAKEN CARE OF. SHE VERBALIZIED UNDERSTANDING. NURSE TOOK RYNE SON NAME LINDA AND PHONE NUMBER. THIS NURSE EXPLAINED Sandra BRYAN THE PORCELAIN ENAMEL LABORER WAS OUT FOR THE DAY AND I COULD SPEAK TO THE CHICKEN HANDLER. SHE VERBALIZED UNDERSTANDING. HOSPICE CALLED AND SAID THEY WOULD TOUCH BASES WITH MARIAMA MICHELE.
--- NOTE | 2019-07-26 18:02 | NUR ---
PATIENT HAS BEEN MORE ALERT AND TALKATIVE THIS SHIFT. HE HAS BEEN ASKING FOR A DEALER COMPLIANCE REPRESENTATIVE. PT TRANSFERRED INTO A WHEELCHAIR DUE TO HIS BACK HURTING. PT IS EATING BETTER AND STAYING AWAKE DURING THE DAY. MEDICATIONS COMPLIANT. TRAMADOL GIVEN DUE TO BACK HURTING AND PT BECAME LESS RESTLESS. CHAIR ALARM IN PLACE AND ACTIVE.
[2019-07-26 19:47] VITALS: BP 110/62
--- NOTE | 2019-07-27 04:19 | NUR ---
B) Patient is alert and oriented to self, calmer and more cooperative this shift, helps with transfers I) Administered scheduled medications as ordered, assisted with needs, R) Mediation compliant calm and cooprative, P)) Continue plan of care.
--- NOTE | 2019-07-27 10:00 | NUR ---
RECEIVED PATIENT IN DINING ROOM FOR B'FAST, ALERT, CALM, NO AGGRESSION. REFUSED MEDS AND B'FAST. REQUESTING A CIGARETTE. CONTINUE PLAN OF CARE, ENCOURAGING INCREASED MED COMPLIANCE.
[2019-07-27 20:07] VITALS: BP 132/63
--- NOTE | 2019-07-28 01:42 | NUR ---
B) Patient is alert and oriented to self, problems at times finding the right words to express his needs, example wanting to go up the hill turned out to mean he wanted to go to bed, I) Administered scheduled medications as ordered, monitored for safety R) Mediaction compliant, less anxious this shift P) Continue plan of care.
[2019-07-28 08:25] VITALS: BP 146/79
--- NOTE | 2019-07-28 14:23 | PN ---
PATIENT:ABIOLA SANCHEZ MEDICAL RECORD: [id number] LOCATION:[facility] ADMISSION DATE: 07/03/19 PROGRESS NOTE DATE OF SERVICE: 07/26/2019 SUBJECTIVE: Mr. Sanchez is a 78-year-old male who has been getting increasingly confused and debilitated over the last several months. We have been working with the family to try to get appropriate aftercare as the patient is certainly unable to care for self. He does attend to me when I talk to him, but he is not able to tell me who he is. He is a diabetic and his blood sugars are somewhat brittle. Nursing states that although he is manageable, he is certainly confused. He is responding to internal stimuli and restless at times. His last blood sugar is 98. He ate no breakfast and lunch, but ate 70% of the dinner last night and snack of 70%. He is on a regular diet because of low blood glucose. His last BM was on the 10th. His sleep time was 6.75 hours. LATEST VITAL SIGNS: 98.4, 76, 18, 109/61, 97%. His Coreg by the nursing report is on hold. ASSESSMENT: Unchanged. PLAN: We are awaiting family input as to disposition to a residential facility. We will continue current management for now. We will consider discontinuing of the Coreg. Case discussed with nursing, chart reviewed and the patient interviewed. TRANSINT:[id number] Voice Confirmation ID: [id number] DOCUMENT ID: [id number] DEMARIO ALMONTE MD at 1423 CC: [id number] DICTATION DATE: 07/26/19922 KITCHEN CLERK: 07/26/19 1202 ADM IN [facility] [address] [id number]
--- NOTE | 2019-07-28 17:43 | NUR ---
ALERT, CALM, COOPERATIVE THIS SHIFT. PT HAS BECOME CONTINENT OF BOWEL AND BLADDER. ABLE TO MAKE COMPLETE SENTENCES, NO INAPPROPRIATE BEHAVIOR. HOWEVER, PT CONTINUES TO BE QUITE CONFUSED. MEDS ADMIN PER ORDERS WITH COMPLETE MED COMPLIANCE NOTED. CONTINUE PLAN OF CARE DIRECTED.
--- NOTE | 2019-07-28 19:27 | NUR ---
RECEIVED IN HALLWAY OUTSIDE OF NURSES STATION, SITTING IN RECLINING CHAIR. CALM AND COOPERATIVE WITH CARE AND ASSESSMENT. NO SIGNS OF AGGRESSION OR SEXUALLY INAPPROPRIATE BEHAVIORS. REDIRECT AND REORIENT NEEDED. CONTINUES TO SIT OUTSIDE OF NURSES STATION. CONTINUE PLAN OF CARE
--- NOTE | 2019-07-28 22:28 | NUR ---
BECOMING INCREASINGLY RESTLESS AND ANXIOUS. REDIRECT AND REORIENT NEEDED WITH LIMITED SUCCESS. VERY CONFUSED.
--- NOTE | 2019-07-28 23:38 | NUR ---
ANXIETY CONTINUES TO INCREASE. PRN ATIVAN 0.25 MG IM GIVEN FOR ANXIETY.
--- NOTE | 2019-07-29 00:38 | NUR ---
RESTING IN RECLINER EYES CLOSED.
[2019-07-29 07:53] VITALS: BP 159/91
--- NOTE | 2019-07-29 08:16 | NUR ---
RECEIVED IN HALLWAY OUTSIDE OF NURSES STATION. CALM AND COOPERATIVE WITH CARE AND ASSESSMENT. NO AGGRESSIVE BEHAVIOR. NO SEXUALLY INAPPROPRIATE BEHAVIOR. REDIRECT AND REORIENT NEEDED. EATING BREAKFAST AT THIS TIME. CONTINUE PLAN OF CARE.
--- NOTE | 2019-07-29 09:29 | NUR ---
SW CALLED PT'S SON, RYNE, AND LEFT MESSAGE. SW WAS ATTEMPTING TO CONFIRM DISCHARGE PLANS.
[2019-07-29 20:41] VITALS: BP 117/51
--- NOTE | 2019-07-29 22:15 | NUR ---
RECEIVED PATIENT SITTING IN A RECLINER AT THE NURSE'S STATION. CONFUSED AND DISORIENTED. PATIENT ATE A SNACK AND THEN WAS READY FOR BED. DIFFICULTY WITH FOLLOWING TOPIC OF CONVERSATION AND VERBAL INSTRUCTIONS. ADMINISTER MEDS AND MONITOR COMPLIANCE. REORIENT NEEDED. MED COMPLIANT. POOR REORIENTATION DUE TO IMPAIRED ABILITY TO COMPREHEND AND RETAIN INFORMATION. CONTINUE POC AND PROVIDE SAFE ENVIRONMENT.
[2019-07-30 07:34] VITALS: BP 113/63
--- NOTE | 2019-07-30 10:43 | NUR ---
REC'D PT IN RECLINING CHAIR BY NURSES STATION. PT IS AWAKE AND ALERT TO SELF ONLY. CALM AND COOPERATIVE WITH ASSESSMENT. PRESCRIBED MEDS PROVIDED. MED COMPLIANT. PT IS RESTLESS THIS MORNING. NO AGGRESSION NOTED AT THIS TIME. REDIRECT AND REORIENT NEEDED. FALL PRECAUTIONS IN PLACE. WILL CPOC.
--- NOTE | 2019-07-30 12:59 | PN ---
PATIENT:ABIOLA ESTES MEDICAL RECORD: [id number] LOCATION:[facility] ADMISSION DATE: 07/03/19 PROGRESS NOTE DATE OF SERVICE: 07/29/2019 SUBJECTIVE: The patient's case was discussed with staff. He has no new complaint. OBJECTIVE: The patient is in good behavioral control. He has poor insight about his situation. He is sleeping adequately, but not eating as well as he should. Efforts are being made to assist him with that. ASSESSMENT: No change in diagnoses. PLAN: Current medicines have been reviewed and will be maintained. Long-term prognosis is guarded. TRANSINT:[id number] Voice Confirmation ID: [id number] DOCUMENT ID: [id number] NORM CAMPOS MD at 1259 CC: [id number] DICTATION DATE: 07/29/19 1610 DOUGHNUT ICER MACHINE: 07/29/19 2114 ADM IN [facility] [address] [id number]
--- NOTE | 2019-07-30 19:02 | NUR ---
RECEIVED IN HALLWAY SITTING IN A RECLINER OUTSIDE OF NURSES STATION. CALM AND COOPERATIVE WITH CARE AND ASSESSMENT. NO SIGNS OF AGGRESSION OR SEXUALLY INAPPROPRIATE BEHAVIORS. REDIRECT AND REORIENT NEEDED. CONTINUES TO REST IN RECLINER EYES CLOSED. CONTINUE PLAN OF CARE
[2019-07-30 20:22] VITALS: BP 129/62
--- NOTE | 2019-07-31 08:30 | NUR ---
RECEIVED IN HALLWAY OUTSIDE OF NURSES STATION. CALM AND COOPERATIVE WITH CARE AND ASSESSMENT. NO AGGRESSIVE BEHAVIOR. REDIRECT AND REORIENT NEEDED. EATING BREAKFAST AT THIS TIME. CONTINUE PLAN OF CARE.
[2019-07-31 09:55] VITALS: BP 123/77
--- NOTE | 2019-07-31 10:51 | NUR ---
CONTACTED SON AMY MICHELE AND DISCUSSED DISCHARGE PLANNING. HE STATED HE IS TURNING IN THE HOSPICE PAPERS TODAY WITH SITTERS FOR HIS FATHER AND WILL BE CONTACTING [facility] WHEN READY FOR DISCHARGE. PT IS GOING HOME WITH 24 HOUR CARE.
--- NOTE | 2019-07-31 11:04 | PN ---
PATIENT:ABIOLA ESTES MEDICAL RECORD: [id number] LOCATION:[facility] ADMISSION DATE: 07/03/19 PROGRESS NOTE DATE OF SERVICE: 07/30/2019 SUBJECTIVE: The patient's case was discussed with staff. He has no new complaint. OBJECTIVE: The patient is significantly better. He is less disorganized. He is denying that he would seek to harm himself. ASSESSMENT: Dementia. PLAN: Supportive and educational interventions were made. I have reviewed the patient's current medications and I am going to start him on Namenda for its memory enhancing properties. TRANSINT:[id number] Voice Confirmation ID: [id number] DOCUMENT ID: [id number] NORM CAMPOS MD at 1104 CC: [id number] DICTATION DATE: 07/30/19 1443 COURTESY CAR DRIVER: 07/30/19 1833 ADM IN [facility] [address] [id number]
--- NOTE | 2019-07-31 20:51 | NUR ---
B.) PT IS ALERT AND ORIENTED TO SELF ONLY. HE IS RECEIVED IN THE HALLWAY IN A KETTY-CHAIR. HE IS ABLE TO MAKE NEEDS KNOWN AT TIMES. HE IS OBSERVED TRYING TO TAKE HIS PANTS OFF IN THE [place]. I.) PROVIDE PM MEDICATIONS. REDIRECT OFTEN. R.) COMPLIANT WITH ALL MEDICATIONS. DIFFICULT TO REDIRECT. P.) WILL CONTINUE TO MONITOR.
[2019-07-31 23:25] VITALS: BP 93/59
[2019-08-01 07:00] VITALS: BP 143/74
--- NOTE | 2019-08-01 11:34 | PN ---
PATIENT:ABIOLA ESTES MEDICAL RECORD: [id number] LOCATION:[facility] ADMISSION DATE: 07/03/19 PROGRESS NOTE DATE OF SERVICE: 07/31/2019 SUBJECTIVE: The patient's case was discussed with staff. He has no new complaint. OBJECTIVE: The patient is better. He was able to name his grandchildren today. ASSESSMENT: Dementia. PLAN: Current medicines have been reviewed and will be maintained. Long-term prognosis is guarded. TRANSINT:[id number] Voice Confirmation ID: [id number] DOCUMENT ID: [id number] NORM CAMPOS MD at 1134 CC: [id number] DICTATION DATE: 07/31/19 1142 YARN TWISTER: 07/31/19 1448 ADM IN [place] [id number] [place] [address]
--- NOTE | 2019-08-01 12:03 | NUR ---
Nutrition Follow-up: Diet: Regular Unrefined foods, mech soft/ground meat, honey thick + Glucerna PO intake: ~50% average x last 9 meals; appears to be drinking ~1 Glucerna shake per day as recorded in flowsheet by nursing. Last BM: 07/30/19. WT: 173.4# (07/28/19); Admit WT: 186# (07/03/19) Meds noted: linzess, senokot, metamucil, megace. No new labs. Noted -12.6lb weight loss. This is not surprising considering his spadic and overall poor PO intake during this admission. However, PO intake seems to be improving some now. Noted that previously MD had said "plans for hospice care at discharge." Will continue to monitor PO intake and wt trend. Recommend continue current diet (or per WASH BARREL LEADER) for now. RD is available for TF recommendations upon request. RD following.
--- NOTE | 2019-08-01 13:22 | NUR ---
CALM, COOPERATIVE, AMBULATES IN W/C. PT CAME AND ASSESSED AND WALKED PATIENT. MEDS ADMIN PER ORDERS WITH COMPLETE MED COMPLIANCE NOTED. NO AGGRESSION OR INAPPROPRIATE BEHAVIORS NOTED. CONT PLAN OF CARE.
--- NOTE | 2019-08-01 16:24 | PN ---
PATIENT:ABIOLA ESTES MEDICAL RECORD: [id number] LOCATION:[facility] ADMISSION DATE: 07/03/19 PROGRESS NOTE DATE OF SERVICE: 08/01/2019 SUBJECTIVE: The patient's case was discussed with staff. He has no new complaint. OBJECTIVE: The patient is in good behavioral control with poor insight about his situation. ASSESSMENT: Dementia. PLAN: Currently, efforts are being made to assist with placement. The issues are complicated and at this point, placement has not been arranged. Please see the social work msw's notes for details about efforts that have been made and the reasons we have been unable to place him at this point. TRANSINT:[id number] Voice Confirmation ID: [id number] DOCUMENT ID: [id number] NORM CAMPOS MD at 1624 CC: [id number] DICTATION DATE: 08/01/19 1144 FUEL TRUCK DRIVER: 08/01/19 1328 ADM IN [id number] [place] [id number]
[2019-08-01 19:30] VITALS: BP 146/78
--- NOTE | 2019-08-01 23:23 | NUR ---
B)RECEIVED PATIENT SITTING IN A CHAIR AT THE NURSE'S STATION. CONFUSED AND DISORIENTED AND OBSERVED TALKING TO UNSEEN OTHERS. ATTEMPTS TO STAND WITHOUT ASSISTANCE. I)ADMINISTER MEDS AND MONITOR COMPLIANCE. REORIENT NEEDED. R) MED COMPLIANT. POOR REORIENTATION DUE TO IMPAIRED ABILITY TO RETAIN INFORMATION. REMAINS VERY CONFUSED AND HAS DIFFICULTY FOLLOWING VERBAL INSTRUCTION. P)CONTINUE POC AND PROVIDE SAFE ENVIRONMENT.
[2019-08-02 09:45] VITALS: BP 138/69
--- NOTE | 2019-08-02 09:55 | NUR ---
The patient is awake, he is confused. He knows his name. He has poor insight into his situation. He is able to walk with PT or staff assist, but he is making short, shuffling steps. He wants to ambulate on his own. Provide prescribed meds. The patient is compliant with meds. Continue POC.
[2019-08-02 20:00] VITALS: BP 112/51
--- NOTE | 2019-08-02 20:57 | NUR ---
B)RECEIVED PATIENT SITTING AT THE NURSE'S TALKING ABOUT THE WARS. ORIENTED TO SELF ONLY. CALM AND COOPERATIVE. I)ADMINSITER MEDS AND MONITOR COMPLIANCE. REORIENT NEEDED. R)MED COMPLIALNT. POOR REORIENTATION DUE TO IMPAIRED ABILITY TO COMPREHEND, PROCESS AND RETAIN INFORMATION. COOPERATIVE WITH STAFF REQUEST. P)CONTINUE POC AND PROVIDE SAFE ENVIRONMENT.
--- NOTE | 2019-08-03 08:11 | NUR ---
The patient is awake and alert, awakened him to take a shower, he is cooperative and he did not become aggressive. After his shower he asked to toilet and for his hearing aids then he got a warm blanket and he is sitting in a oli chair waiting to go to the day room for breakfast. Provide prescribed meds. The patient is compliant with meds. Redirect as needed to appropriate behavior. Continue POC.
[2019-08-03 08:24] VITALS: BP 151/86
--- NOTE | 2019-08-03 09:54 | NUR ---
SPOKE WITH A FAMILY MEMBER ASKING WHEN VISITING HOURS ARE AND WHY THEY WERE SO LATE IN THE EVENING. SHE INQUIRED "WOULDNT IT BE BETTER FOR DEMENTIA PATIENTS IF VISITATION WAS IN THE MORNING." NURSE EXPLAINED WE KEPT PTS ON A REGULAR SCHEDULE AND THATS THE GUIDELINES WE HAVE TO FOLLOW FOR CERTAIN REASONS. SHE VERBALIZIED UNDERSTANDING. VISITATION HOURS GIVEN. SHE INQUIRED IF HE WAS STILL A PATIENT HERE AND IF HIS BROTHER IN LAW HAD MOVED HIM FROM HERE. NURSE ASKED FOR CODEWORD. CODEWORD WAS GIVEN.
--- NOTE | 2019-08-03 11:10 | NUR ---
PATIENT WAS RESTLESS AND REQUESTING A W/C A BLACK W/C. NURSE ASSISTED PT INTO W/C WITH HIM AMBULATING. CHAIR ALARM IN PLACE AND ACTIVE. WILL CONT TO MONITOR.
--- NOTE | 2019-08-03 11:26 | PN ---
PATIENT:ABIOLA ESTES MEDICAL RECORD: [id number] LOCATION:[facility] ADMISSION DATE: 07/03/19 PROGRESS NOTE DATE OF SERVICE: 08/02/2019 SUBJECTIVE: The patient's case was discussed with staff. He has no new complaint. OBJECTIVE: The patient walked some with physical therapy. He is still very confused. He has very limited insight about his situation. ASSESSMENT: Dementia. PLAN: The patient will be maintained on current medicines, which have been reviewed. Placement has been a major obstacle to his discharge at this point. Once placement has been arranged, he can be discharged. TRANSINT:[id number] Voice Confirmation ID: [id number] DOCUMENT ID: [id number] NORM CAMPOS MD at 1126 CC: [id number] DICTATION DATE: 08/02/19 0737 WANT AD RECEIVER: 08/02/19 0746 ADM IN [place] [id number] [place] [address]
--- NOTE | 2019-08-03 12:17 | NUR ---
PT IS VERY RESTLESS AND AGITATED. HE STATED HIS SON RYNE IS IN THE CAR AND WAITING ON HIM. WE NEED TO TAKE HIM OUT TO THE CAR. I NEED THIS THING FROM UNDER ME TO PLUG IN THE WALL." STAFF ATTEMPTED MULTIPLE REDIRECT. PT BECOMES UPSET AND STARTS PULLING AT CHAIR AND BLANKET. ATIVAN 0.5 MG IM GIVEN PER DR. CAMPOS ORDER FOR ANXIETY. WILL REASSESS FOR EFFECTIVENESS.
--- NOTE | 2019-08-03 13:17 | NUR ---
PRN IS NOT EFFECTIVE AT THIS TIME. PT CONTS TO ATTEMPT TO STAND UNASSISTED, AGITATED THAT HE CAN NOT GO OUTSIDE WITH HIS SON. PATIENT REFUSED LUNCH EXCEOT FOR DESSERT. WILL CONT TO REDIRECT.
--- NOTE | 2019-08-03 17:45 | NUR ---
PT ALLOWED NURSE TO ASSIST WITH BRUSHING TEETH AND MOUTH WASH. TOLERATED WELL.
[2019-08-03 19:26] VITALS: BP 125/57
--- NOTE | 2019-08-03 22:23 | NUR ---
B)RECEIVED PATIENT SITTING IN THE DAYROOM. KEEPS TRYING TO STAND WITHOUT ASSISTANCE AND DOES NOT FOLLOW VERBAL REDIRECTION. ORIENTED TO SELF ONLY. TURKEY SANDWICH TRAY GIVEN TO PATIENT AND HE ATE 100%. HARD OF HEARING AND WEARS AIDS HOWEVER PATIENT HAD TAKEN THEM OUT AND PUT THEM ON THE TABLE. BROUGHT TO NURSE'S STATION AND PLACED ON DRY CLIPPER TENDER. I)ADMINISTER MEDS AND MONITOR COMPLIANCE. REORIENT NEEDED. R)MED COMPLIANT. POOR REORIENTATION DUE TO IMPAIRED ABILITY TO COMPREHEND, PROCESS AND RETAIN INFORMATION. P)CONTINUE POC AND PROVIDE SAFE ENVIRONMENT.
--- NOTE | 2019-08-04 08:31 | NUR ---
RECEIVED IN HALLWAY OUTSIDE OF NURSES STATION. CALM AND COOPERATIVE WITH CARE AND ASSESSMENT. NO AGGRESSIVE BEHAVIORS. NO SEXUALLY INAPPROPRIATE BEHAVIORS. REDIRECT AND REORIENT NEEDED. EATING BREAKFAST AT THIS TIME. CONTINUE PLAN OF CARE.
--- NOTE | 2019-08-04 11:01 | PN ---
PATIENT:ABIOLA ESTES MEDICAL RECORD: [id number] LOCATION:[facility] ADMISSION DATE: 07/03/19 PROGRESS NOTE DATE OF SERVICE: 08/03/2019 SUBJECTIVE: The patient's case was discussed with staff. He has no new complaint. OBJECTIVE: The patient is disruptive and significantly agitated. He is requiring p.r.n. medication at this time. ASSESSMENT: Dementia. PLAN: At this time, I am going to increase the patient's Namenda slightly and we will change his scheduled Klonopin to a twice daily dosing schedule to assist with some of his underlying disruptive behaviors. TRANSINT:[id number] Voice Confirmation ID: [id number] DOCUMENT ID: [id number] NORM CAMPOS MD at 1101 CC: [id number] DICTATION DATE: 08/03/19 1224 ECONOMIC GEOGRAPHER: 08/03/19 1242 ADM IN [facility] [address] [place] [address]
[2019-08-04 11:19] VITALS: BP 136/66
--- NOTE | 2019-08-04 18:54 | NUR ---
RECEIVED IN HALLWAY SITTING IN A WHEELCHAIR WITH EYES CLOSED. CALM AND COOPERATIVE WITH CARE AND ASSESSMENT. NO SIGNS OF AGGRESSION. NO SEXUALLY INAPPROPRIATE BEHAVIOR. CONTINUES TO REST QUIETLY WITH EYES CLOSED. CONTINUE PLAN OF CARE
--- NOTE | 2019-08-04 21:04 | NUR ---
IN HALLWAY. VERY CONFUSED. WANTS TO GO DOWN STAIRS. INCREASING ANXIETY. RESISTANT TO REDIRECTION. STANDS WITHOUT ASSIST. ROSENDA ALARM SOUNDING. ATTEMTS TO REDIRECT AND REORIENT UNSUCCESSFUL. ANXIETY CONTINUES TO INCREASE. PRN ATIVAN 0.5 MG IM GIVEN FOR ANXIETY. PRN HALDOL 2 MG IM GIVEN FOR PSYCHOTIC BEHAVIOR. CONTINUE TO MONITOR FOR SAFETY.
--- NOTE | 2019-08-04 21:53 | NUR ---
RESTING WITH EYES CLOSED AT THIS TIME.
[2019-08-05 08:58] VITALS: BP 172/96
--- NOTE | 2019-08-05 09:38 | NUR ---
RECEIVED IN HALLWAY OUTSIDE OF NURSES STATION. CALM AND COOPERATIVE WITH CARE AND ASSESSMENT. NO AGGRESSIVE BEHAVIOR THIS MORNING. REDIRECT AND REORIENT NEEDED. RESTING IN RECLINER IN DAYROOM WITH EYES CLOSED AT THIS TIME. CONTINUE PLAN OF CARE.
--- NOTE | 2019-08-05 10:58 | PN ---
PATIENT:ABIOLA ESTES MEDICAL RECORD: [id number] LOCATION:[facility] ADMISSION DATE: 07/03/19 PROGRESS NOTE DATE OF SERVICE: 08/04/2019 SUBJECTIVE: The patient's case was discussed with staff. He has no new complaint. OBJECTIVE: The patient is still having some significant bouts of agitation. He has pretty limited insight about his situation. ASSESSMENT: Dementia. PLAN: The patient is going to be given a low dose of Klonopin to assist with his agitation. He will be monitored for clinical changes associated with its use. TRANSINT:[id number] Voice Confirmation ID: [id number] DOCUMENT ID: [id number] NORM CAMPOS MD at 1058 CC: [id number] DICTATION DATE: 08/04/19 1103 PIANO MECHANIC: 08/04/19 1144 ADM IN [place] [id number] [place] [address]
--- NOTE | 2019-08-05 15:34 | NUR ---
SHON SPOKE TO SON LAST WEEK AND HE STATED HE WOULD GIVE [facility] PPW TO COMPLETE DISCHARGE. [facility] CALLED TODAY AND STATED RYNE HAS NOT ANSWERED PHONE OR SENT PPW REQUESTED FROM NURSING BACK TO THEM. RYNE STATED THE HOME CARE HAS FALLEN APART AND PT WILL NOT BE ABLE TO GO BACK HOME. SHON STATED THE IMPORTANCE OF PT DISCHARGING AND HAVING SAFE DISCHARGE PLANS. SHON ALSO EDUCATED ON THE SIGNIFICANCE OF HOSPICE IN THE [facility] SETTING IF PT WAS GOING TO BE PLACE THERE. RYNE VOICED UNDERSTANDING OF DISCUSSION AND STATED HE WOULD CONTACT SHON WHEN PPW AT [facility] IS COMPLETED. SHON JUST CALLED AND LEFT VOICEMAIL ON RYNE'S VOICEMAIL AND STATED THE IMPORTANCE OF DISCHARGING.
[2019-08-05 19:55] VITALS: BP 116/58
--- NOTE | 2019-08-05 20:38 | NUR ---
B.) PT IS ALERT AND ORIENTED TO SELF. HE IS RECEIVED IN THE HALLWAY IN A KETTY-CHAIR. HE STATES "IM WORRIED ABOUT MY , SHE IS HAVING A BABY AND I DONT WANT HER IN PAIN. GIVE HER DILAUDID." HE IS UNABLE TO AMBULATE WITHOUT ASSIST. FOR THE MOST PART HE IS CALM AND KEEPS TO HIMSELF. I.) PROVIDE PM MEDICATIONS PRESCRIBED. REDIRECT OFTEN. R.) COMPLIANT WITH ALL MEDICATIONS. DIFFICULT TO REDIRECT AT TIMES. P.) WILL CONTINUE TO MONITOR.
--- NOTE | 2019-08-06 00:03 | NUR ---
PT COMBATIVE WITH STAFF. ADMINISTERED PRN 0.25 MG ATIVAN IM TO LEFT DELTOID. WILL CONTINUE TO MONITOR.
--- NOTE | 2019-08-06 00:30 | NUR ---
PT RESTING CALMLY IN BED WITH EYES CLOSED AND SNORING. WILL CONTINUE TO MONITOR.
[2019-08-06 08:12] VITALS: BP 138/62
--- NOTE | 2019-08-06 11:02 | PN ---
PATIENT:ABIOLA ESTES MEDICAL RECORD: [id number] LOCATION:[facility] ADMISSION DATE: 07/03/19 PROGRESS NOTE DATE OF SERVICE: 08/05/2019 SUBJECTIVE: The patient's case was discussed with staff. He has no new complaint. OBJECTIVE: The patient is in good behavioral control. He has limited insight about his situation. He was quite agitated last night and received p.r.n. Haldol. ASSESSMENT: Dementia. PLAN: The patient presents as significant and serious management problem. He has a few good days in a row and then he will have these disruptive behaviors. I am going to increase the dose of the Seroquel he takes and move it to twice daily dosing schedule. Hospice has accepted him. Unfortunately, he does not have a usp he can go to at this point, I do think it is appropriate for him to be in hospice for his dementia. TRANSINT:[id number] Voice Confirmation ID: [id number] DOCUMENT ID: [id number] NORM CAMPOS MD at 1102 CC: [id number] DICTATION DATE: 08/05/19 1351 ROD PULLER AND COILER: 08/05/19 2312 ADM IN [facility] [address] [id number]
--- NOTE | 2019-08-06 20:53 | NUR ---
RECEIVED IN HALLWAY OUTSIDE OF NURSES STATION SITTING IN A RECLINING CHAIR. CALM AND COOPERATIVE WITH CARE AND ASSESSMENT. NO SIGNS OF AGGRESSION OR SEXUALLY INAPPROPRIATE BEHAVIOR. REDIRECT AND REORIENT NEEDED. RESTING IN RECLINER EYES CLOSED AT THIS TIME. CONTINUE PLAN OF CARE
[2019-08-06 22:07] VITALS: BP 105/52
[2019-08-07 09:00] VITALS: BP 145/80
--- NOTE | 2019-08-07 10:00 | NUR ---
PATIENT ALERT, CALM, COOPERATIVE, MED COMPLIANT. PERSONAL BELONGINGS PACKED AND PREPARED FOR DISCHARGE. NO BEHAVIORAL ISSUES NOTED. CONT CONFUSION, BUT PT AT BASELINE.
--- NOTE | 2019-08-07 11:35 | NUR ---
PERSONAL BELONGINGS AND DISCHARGE MED LIST/INSTRUCTIONS GIVEN TO CAREGIVERS. FOLLOWUP APPT. MADE. NO S/S PAIN OR DISTRESS, ASSISTED TO PERSONAL AUTO FOR TRANSPORT HOME.
--- NOTE | 2019-08-07 14:18 | PN ---
PATIENT:ABIOLA ESTES MEDICAL RECORD: [id number] LOCATION:[facility] ADMISSION DATE: 07/03/19 PROGRESS NOTE DATE OF SERVICE: 08/06/2019 SUBJECTIVE: The patient's case was discussed with staff. He has no new complaint. OBJECTIVE: The patient has tolerated his initial doses of Seroquel well. He is less aggressive today. ASSESSMENT: Dementia. PLAN: The patient's son has made arrangements with our town planner for followup care. The patient is going to go home with hospice, and he will have 24-hour a day caregivers there. This will negate the necessity to have his behaviors manageable in a retirement setting. Unfortunately, his condition is grave and hospice I think is an appropriate referral for him. TRANSINT:[id number] Voice Confirmation ID: [id number] DOCUMENT ID: [id number] NORM CAMPOS MD at 1418 CC: [id number] DICTATION DATE: 08/06/19 1227 AQUARIUM TANK ATTENDANT: 08/06/19 2046 ADM IN [place] [id number] [place] [address]
== END 2019-08-07 11:40 | disposition home health service (06) | DRG 884 ==
LOC: D.PSYCH 16:56
PROVIDERS: Family Medicine; ADMIT Psychiatry & Neurology Psychiatry; ATTEND Psychiatry & Neurology Psychiatry
DX: F01.51 Vascular dementia, unspecified severity, with behavioral disturbance (principal); F32.9 Major depressive disorder, single episode, unspecified; E78.5 Hyperlipidemia, unspecified; G89.29 Other chronic pain; I12.9 Hypertensive chronic kidney disease with stage 1 through stage 4 chronic kidney disease, or unspecified chronic kidney disease; E11.22 Type 2 diabetes mellitus with diabetic chronic kidney disease; N18.2 Chronic kidney disease, stage 2 (mild); I69.319 Unspecified symptoms and signs involving cognitive functions following cerebral infarction; Z95.0 Presence of cardiac pacemaker; R63.0 Anorexia; E11.649 Type 2 diabetes mellitus with hypoglycemia without coma; K59.00 Constipation, unspecified; M25.511 Pain in right shoulder; H91.93 Unspecified hearing loss, bilateral; N28.9 Disorder of kidney and ureter, unspecified; S20.229A Contusion of unspecified back wall of thorax, initial encounter